=== PATIENT | male | born 1985 | race African-American/Black ===

== ENCOUNTER 2016-03-14 15:08 | Emergency (ER) | payer BC, OTHER ==
[2016-03-14 15:29] VITALS: BP 151/92; PULSE 83; TEMP 98; BMI 30.4
--- NOTE | 2016-03-14 16:42 | PDOC ---
History of Present Illness - General Chief Complaint: Psychiatric Stated Complaint: ANXIETY Time Seen by Provider: 03/14/16 16:08 History Source: Patient Exam Limitations: No Limitations - History of Present Illness Initial Comments: 03/14/16 21:48 31 yr male states he had "panic attack" yesterday at work and was sent home, pt states he is unable to return to work until seeing a doctor. Pt has no history of panic attacks, states he has been anxious at times and yesterday events causing argument caused him to have a panic attack. Pt denies illicit drug use, no alcohol or smoking. Pt has no medical history. Pt currently denies suicidal or homicidal thoughts. Associated Symptoms: reports: denies symptoms Past History - Past Medical History Allergies/Adverse Reactions: Allergies Allergy/AdvReac Type Severity Reaction Status Date / Time No Known Allergies Allergy Verified 03/14/16 15:29 Home Medications: Ambulatory Orders NK [No Known Home Medication] 04/04/15 Psychiatric Problems: No Suicide Attempt (Hx): No Other medical history: DENIES - Surgical History Cardiac Surgery: Yes (as a child unknown ) - Family Disease History Comment:: 03/14/16 21:50 unknown - Immunization History Immunization Up to Date: Yes - Psycho/Social/Smoking Cessation Hx Anxiety: No Suicidal Ideation: No Smoking History: Never smoked Have you smoked in the past 12 months: No Information on smoking cessation initiated: No Hx Alcohol Use: No Drug/Substance Use Hx: No Substance Use Type: None Review of Systems - Review of Systems Able to Perform ROS?: Yes Is the patient limited Tajik proficient: No Constitutional: No: Symptoms Reported HEENTM: No: Symptoms Reported Respiratory: No: Symptoms reported Cardiac (ROS): No: Symptoms Reported ABD/GI: No: Symptoms Reported : No: Symptoms Reported Musculoskeletal: No: Symptoms Reported Integumentary: No: Symptoms Reported Neurological: No: Symptoms reported Psychiatric: No: Anxiety, Depression *Physical Exam - Vital Signs Last Vital Signs Temp Pulse Resp BP Pulse Ox 98 F 83 18 151/92 98 03/14/16 15:26 03/14/16 15:26 03/14/16 15:26 03/14/16 15:26 03/14/16 15:26 - Physical Exam General Appearance: Yes: Nourished, Appropriately Dressed HEENT: positive: EOMI, GHAZAL, TMs Normal, Pharynx Normal Neck: positive: Supple. negative: Tender Respiratory/Chest: positive: Lungs Clear, Normal Breath Sounds Cardiovascular: positive: Regular Rhythm, Regular Rate Gastrointestinal/Abdominal: positive: Normal Bowel Sounds, Soft Musculoskeletal: positive: Normal Inspection Extremity: positive: Normal Capillary Refill, Normal Inspection, Normal Range of Motion Integumentary: positive: Normal Color, Dry, Warm Neurologic: positive: Fully Oriented, Alert, Normal Mood/Affect, Normal Response , Motor Strength /5 Medical Decision Making - Medical Decision Making 03/14/16 21:50 cc: needs note to return to work had "panic attack yesterday" pt denies anxiety at present denies SI or HI no history of depression or psychiatric illness pt is calm, cooperative no acute distress, Aox3 pt to return to work tomorrow follow with PMD or with the referred provider for Psychiatric services if any symptoms continue pt agrees with plan and agrees to follow with PMD if needed all questions asked and answered *DC/Admit/Observation/Transfer Diagnosis at time of Disposition: Anxiety - Discharge Dispostion Disposition: HOME Condition at time of disposition: Good - Referrals Referrals: Kevin Alvarado NP [Nurse Practitioner] - - Patient Instructions Additional Instructions: follow with your medical doctor for follow up if you have any thoughts of depression, sadness, hurting yourself return to ER right away return to work tomorrow
== END 2016-03-14 16:50 | disposition home or self-care (01) ==
LOC: JERFT 15:08
DX: F41.8 Other specified anxiety disorders (principal); F41.0 Panic disorder [episodic paroxysmal anxiety]
CPT/HCPCS: 99281-25

== ENCOUNTER 2017-06-24 13:01 | Emergency (ER) | payer OTHER ==
[2017-06-24 13:09] VITALS: BP 149/82; PULSE 92; TEMP 97.3; BMI 31.1
--- NOTE | 2017-06-24 13:22 | PDOC ---
History of Present Illness - General Chief Complaint: Toothache Stated Complaint: TOOTHACHE Time Seen by Provider: 06/24/17 13:17 History Source: Patient Exam Limitations: No Limitations - History of Present Illness Initial Comments: 06/24/17 14:17 c/o worsening toothache to left lower mouth, no [id number]/ no swelling to face/ has appt with DEnitist in 1 week Timing/Duration: unsure Associated Symptoms: reports: headaches, malaise. denies: fever/chills Past History - Travel Traveled outside of the country in the last 30 days: No Close contact w/someone who was outside of country & ill: No - Past Medical History Allergies/Adverse Reactions: Allergies Allergy/AdvReac Type Severity Reaction Status Date / Time No Known Allergies Allergy Verified 03/14/16 15:29 Home Medications: Ambulatory Orders Clindamycin HCl 300 mg PO TID #21 capsule 06/24/17 Naproxen [Naprosyn -] 500 mg PO TID #30 tablet 06/24/17 Oxycodone HCl/Acetaminophen [Percocet 5-325 mg Tablet -] 1 - 2 tab PO Q4H PRN # 7 tablet MDD 4 06/24/17 COPD: No Psychiatric Problems: No - Surgical History Cardiac Surgery: Yes (heart surgery PDA) - Immunization History Immunization Up to Date: Yes - Suicide/Smoking/Psychosocial Hx Smoking History: Never smoked Have you smoked in the past 12 months: No Hx Alcohol Use: No Drug/Substance Use Hx: No Substance Use Type: None Review of Systems - Review of Systems Able to Perform ROS?: Yes Is the patient limited French proficient: Yes Constitutional: Yes: Symptoms Reported, See HPI, Malaise. No: Fever HEENTM: Yes: Symptoms Reported, See HPI, Mouth Pain, Dental Problems, Mouth Swelling Respiratory: Yes: See HPI Integumentary: Yes: Symptoms Reported, See HPI All Other Systems: Reviewed and Negative *Physical Exam - Vital Signs Last Vital Signs Temp Pulse Resp BP Pulse Ox 97.3 F L 92 H 18 149/82 99 06/24/17 13:07 06/24/17 13:07 06/24/17 13:07 06/24/17 13:07 06/24/17 13:07 - Physical Exam General Appearance: Yes: Nourished, Appropriately Dressed, Apparent Distress, Mild Distress, Moderate Distress HEENT: positive: GHAZAL, TMs Normal, Pharynx Normal, Other (fractured teeth to left lower molar/ incisor with no noted swelling or abscess to gingival surface . ) Neck: positive: Tender, Supple. negative: Lymphadenopathy (R), Lymphadenopathy (L) Respiratory/Chest: positive: Lungs Clear, Normal Breath Sounds Gastrointestinal/Abdominal: positive: Soft Extremity: positive: Normal Capillary Refill, Normal Inspection Integumentary: positive: Normal Color, Dry, Warm, Pale Neurologic: positive: chief meteorologist II-XII NML intact, Fully Oriented, Alert, Normal Mood/ Affect, Normal Response, Motor Strength 06/28 Medical Decision Making - Medical Decision Making 06/24/17 14:07 toothache pain, related to multiple fractured teeth *DC/Admit/Observation/Transfer Diagnosis at time of Disposition: Tooth ache - Discharge Dispostion Disposition: HOME Condition at time of disposition: Stable Admit: No - Prescriptions Prescriptions: Clindamycin HCl 300 mg PO TID #21 capsule Oxycodone HCl/Acetaminophen [Percocet 5-325 mg Tablet -] 1 - 2 tab PO Q4H PRN # 7 tablet MDD 4 PRN Reason: Pain - Referrals - Patient Instructions Printed Discharge Instructions: DI for Dental Pain Additional Instructions: Rest, drink lots of fluids: Teas, water, soups Saltwater gargles/ keep mouth clean and rinse after each meal May use wet teabag for pain relief to area Avoid hard chewing foods, stick to ice cream, Jell-O, yogurt etc. Tylenol or Motrin for fever and pain Complete all medication as prescribed Seek dental appointment as soon as possible for evaluation of dental injury/pain Followup with private physician in one to 2 days as needed Return to emergency department for worsened symptoms, fevers, swelling to face or worsened pain - Post Discharge Activity Forms/Work/School Notes: Back to Work
[2017-06-24] MEDS ORDERED: KETOROLAC TROMETHAMINE 60 MG/2 ML VIAL IM ONE (14:00)
[2017-06-24] MEDS ORDERED: KETOROLAC TROMETHAMINE 60 MG/2 ML VIAL ONE (14:03)
== END 2017-06-24 14:15 | disposition home or self-care (01) ==
LOC: JERFT 13:01
PROC: 3E0233Z Introduction of Anti-inflammatory into Muscle, Percutaneous Approach (ICD-10-PCS; principal; 2017-06-24)
DX: K08.89 Other specified disorders of teeth and supporting structures (principal)
CPT/HCPCS: 99281-25

== ENCOUNTER 2017-11-10 20:23 | Inpatient (IN) | payer OTHER ==
--- NOTE | 2017-11-10 20:40 | PDOC ---
Rapid Medical Evaluation Chief Complaint: Cold Symptoms Time Seen by Provider: 11/10/17 20:37 Medical Evaluation: Allergies Allergy/AdvReac Type Severity Reaction Status Date / Time No Known Allergies Allergy Verified 03/14/16 15:29 11/10/17 20:38 This patient had a brief in-person evaluation by me The patient has a chief complaint of: flu-like symptoms since Friday. Patient reports bodyaches, fever, and headache. Recent return from [facility] on Friday. Using theraflu with no relief of symptoms The pertinent physical findings are: nasal congestion even and unlabored breathing heart [id number] The following orders have been placed: flu swab, antipyretic This patient will proceed to the ED for further evaluation. 11/10/17 20:41
[2017-11-10 20:41] VITALS: BMI 31.7
[2017-11-10] MEDS ORDERED: ACETAMINOPHEN 500 MG TABLET (FP) PO ONE (20:43)
[2017-11-10] MEDS ORDERED: ACETAMINOPHEN 500 MG TABLET (FP) ONE (20:50)
--- NOTE | 2017-11-10 21:27 | PDOC ---
History of Present Illness - General Chief Complaint: Cold Symptoms Stated Complaint: COLD SYMPTOMS Time Seen by Provider: 11/10/17 20:37 History Source: Patient Exam Limitations: No Limitations - History of Present Illness Initial Comments: 11/11/17 01:51 Mr. Solano is a 32 yo M with a hx of PDA repair at ahe 13 yo who presents to the emergency department with generalized aches and fever. He states it began on Friday, but he did not have his temperature checked, just "felt hot". Concurrently, he had an onset of generalized body aches that persisted. He endorses having a non productive cough along with headaches, chills, and nausea. Denies recent visual changes, chest pain, SOB, abdominal pain, dysuria, hematuria, recent sick contacts, leg pain/swelling, diarrhea, and melena. Pmhx: Refer to above Meds: None Allergies: NKDA Social: Denies tobacco, alcohol, and substance abuse Past History - Past Medical History Allergies/Adverse Reactions: Allergies Allergy/AdvReac Type Severity Reaction Status Date / Time nut - unspecified Allergy Severe Swelling Verified 11/10/17 20:42 fruit Allergy Severe Swelling Uncoded 11/10/17 20:42 Home Medications: Ambulatory Orders Clindamycin HCl 300 mg PO TID #21 capsule 06/24/17 Naproxen [Naprosyn -] 500 mg PO TID #30 tablet 06/24/17 Oxycodone HCl/Acetaminophen [Percocet 5-325 mg Tablet -] 1 - 2 tab PO Q4H PRN # 7 tablet MDD 4 06/24/17 COPD: No Psychiatric Problems: No - Surgical History Cardiac Surgery: Yes (heart surgery PDA) - Immunization History Immunization Up to Date: Yes - Suicide/Smoking/Psychosocial Hx Smoking History: Never smoked Have you smoked in the past 12 months: No Information on smoking cessation initiated: No Hx Alcohol Use: Yes (social) Drug/Substance Use Hx: No Substance Use Type: None Review of Systems - Review of Systems Able to Perform ROS?: Yes Constitutional: Yes: Chills, Diaphoresis, Fever HEENTM: No: Eye Pain, Recent change in vision, Nose Pain, Throat Pain, Mouth Pain Respiratory: Yes: Cough. No: Shortness of Breath, Hemoptysis Cardiac (ROS): No: Chest Pain, Edema, Palpitations, Syncope, Chest Tightness ABD/GI: Yes: Nausea, Poor Fluid Intake. No: Constipated, Diarrhea, Poor Appetite, Rectal Bleeding, Vomiting, Abdominal cramping, Tarry Stools : No: Burning, Dysuria, Flank Pain, Hematuria Musculoskeletal: No: Back Pain Integumentary: No: Rash Neurological: Yes: Headache. No: Numbness, Tingling, Tremors, Weakness, Dizziness Psychiatric: No: Stressors Endocrine: No: Unexplained Weight Gain Hematologic/Lymphatic: No: Anemia *Physical Exam - Vital Signs Last Vital Signs Temp Pulse Resp BP Pulse Ox 103.0 F H 121 H 20 140/89 93 L 11/10/17 20:37 11/10/17 20:37 11/10/17 20:37 11/10/17 20:37 11/10/17 20:37 - Physical Exam General Appearance: Yes: Nourished, Appropriately Dressed HEENT: positive: EOMI, GHAZAL Neck: positive: Trachea midline. negative: Lymphadenopathy (R), Lymphadenopathy (L) Respiratory/Chest: positive: Lungs Clear, Normal Breath Sounds. negative: Chest Tender, Respiratory Distress, Accessory Muscle Use Cardiovascular: positive: Regular Rhythm, S1, S2, Tachycardia. negative: Systolic Murmur Vascular Pulses: Dorsalis-Pedis (R): 3+, Doralis-Pedis (L): 3+ Gastrointestinal/Abdominal: positive: Normal Bowel Sounds. negative: Tender Lymphatic: negative: Adenopathy Musculoskeletal: positive: Normal Inspection. negative: CVA Tenderness Extremity: positive: Normal Capillary Refill, Normal Inspection, Normal Range of Motion. negative: Tender Integumentary: positive: Normal Color, Dry, Warm Neurologic: positive: scleroscope tester II-XII NML intact, Fully Oriented, Alert, Normal Mood/ Affect, Normal Response, Motor Strength 06/28 ED Treatment Course - LABORATORY CBC & Chemistry Diagram: 11/10/17 23:20 11/10/17 23:20 - Medications Given in the ED: ED Medications Discontinued Medications Generic Name Dose Route Start Last Admin Trade Name Freq PRN Reason Stop Dose Admin Acetaminophen 1,000 mg 11/10/17 20:43 11/10/17 20:53 Tylenol - PO 11/10/17 20:44 1,000 mg ONCE ONE Administration Medical Decision Making - Medical Decision Making 11/11/17 01:58 32 yo M with no pertinent past medical hx presenting with fever and generalized body aches ddx: influenza, URI, CAP, sepsis Initial vitals: Initial Vital Signs Temp Pulse Resp BP Pulse Ox 103.0 F H 121 H 20 140/89 93 L 11/10/17 20:37 11/10/17 20:37 11/10/17 20:37 11/10/17 20:37 11/10/17 20:37 Work up: Laboratory Tests 11/10/17 11/10/17 11/11/17 23:20 23:20 02:30 WBC 19.0 H RBC 4.62 Hgb 13.0 Hct 38.7 MCV 83.8 MCH 28.1 MCHC 33.6 RDW 14.2 Plt Count 276 MPV 7.9 Absolute Neuts (auto) 14.6 H Neutrophils % 76.8 Lymphocytes % 14.6 Monocytes % 8.0 Eosinophils % 0.3 Basophils % 0.3 Nucleated RBC % 0 Sodium 137 Potassium 3.9 Chloride 103 Carbon Dioxide 26 Anion Gap 8 BUN 12 Creatinine 1.1 Creat Clearance w eGFR > 60 Random Glucose 106 Calcium 8.8 Total Bilirubin 1.0 AST 27 ALT 37 Alkaline Phosphatase 110 Total Protein 7.9 Albumin 3.8 Urine Color Lesa Urine Appearance Slcloudy Urine pH 5.0 Ur Specific [place] 1.030 Urine Protein 2+ H Urine Glucose (UA) Negative Urine Ketones 1+ H Urine Blood 2+ H Urine Nitrite Negative Urine Bilirubin Negative Urine Urobilinogen 2.0 Ur Leukocyte Esterase Negative Urine WBC (Auto) 3 Urine RBC (Auto) 7 Urine Mucus Many CXR showed elevated left hemidiaphragm and possible infiltrate in the right lower lobe. A CT chest was ordered which showed "ground glass and nodular patchy densities right upper, right middle, right lower, and left upper lobes". The patient was adamant on re-examination that he was not taking medication or had previous medical history except for the PDA. The findings were relayed to the patient and I expressed concern that he may be immunocompromised and asked if we can run a HIV test. He declined stating "i just don't want to know". it was subsequently revealed by the hospital admitting team that he was in fact HIV positive on anti-retroviral therapy. Will be admitted for further management and care. Started on rocephin and azithromycin. Dispo: Admit *DC/Admit/Observation/Transfer Diagnosis at time of Disposition: Pneumonia Qualifiers: Pneumonia type: due to unspecified organism Laterality: unspecified laterality Lung location: unspecified part of lung Qualified Code(s): J18.9 - Pneumonia, unspecified organism - Discharge Dispostion Decision to Admit order: Yes - Referrals - Patient Instructions - Post Discharge Activity
[2017-11-10] MEDS ORDERED: SODIUM CHLORIDE 1,000 ML IV STA (21:39)
[2017-11-10 23:37] LABS: BASO % 0.3 % (0-2.0); EOS % 0.3 % (0-4.5); HEMATOCRIT 38.7 % (35.4-49); LYMPH % 14.6 % (8-40); MCH 28.1 pg (25.7-33.7); MCHC 33.6 g/dl (32.0-35.9); MEAN CELL VOLUME 83.8 fl (80-96); MEAN PLT VOLUME 7.9 fl (7.5-11.1); NEUT % 76.8 % (42.8-82.8); PLATELET COUNT 276 K/MM3 (134-434); RBC 4.62 M/mm3 (4.00-5.60); RDW 14.2 % (11.9-15.9)
--- NOTE | 2017-11-10 23:39 | PDOC ---
Attending Attestation - HPI HPI: 11/10/17 23:51 The patient is a 32 year old male, with no significant past medical history, who presents to the emergency department with, 3 days of a headache, fever, chills, nausea, vomiting, and diffuse body aches. - Physicial Exam PE: 11/10/17 23:51 +GENERAL: Diaphoretic. No apparent distress. HEENT: Normocephalic, atraumatic. PERRL, EOM intact. CARDIOVASCULAR: Normal S1, S2. Regular rate and rhythm. PULMONARY: Clear to auscultation bilaterally. ABDOMEN: Soft, non-distended, non-tender. EXTREMITIES: Normal ROM in all four extremities. No gross deformities. SKIN: Warm, dry. No rash NEUROLOGICAL: No focal neurological deficits. <Amelia Vincent - Last Filed: 11/10/17 23:51> - Resident Resident Name: Soto Garcia - ED Attending Attestation I have performed the following: I have examined & evaluated the patient, The case was reviewed & discussed with the resident, I agree w/resident's findings & plan, Exceptions are as noted - Medical Decision Making 11/11/17 00:50 32 yo male who denies any prior PMH p/w 3 days of fever,nasal congestion,nausea, head ache -he appears in good spirits and is nontoxic appearing despite his high fever -he has no nuchal rigidity cbc shows leukocytosis chemistries unremarkable 11/11/17 02:36 ct chest ++ ground glass infiltrates -pt was again asked about his PMH and he did finally say he was HIV positive pr admitted <Chel Mckenzie - Last Filed: 11/11/17 02:37> Attestations - Attestations 11/10/17 23:52 Documentation prepared by Amelia Vincent, acting as director of graduate medical education for Chel Mckenzie MD. <Amelia Vincent - Last Filed: 11/10/17 23:51>
[2017-11-11] LABS: ALBUMIN 3.8 g/dl (3.4-5.0); ANION GAP 8 MMOL/L (8-16); BLOOD UREA NITROGEN 12 mg/dL (7-18); CALCIUM 8.8 mg/dL (8.5-10.1); CHLORIDE 103 mmol/L (98-107); CO2 26 mmol/L (21-32); CREATININE 1.1 mg/dL (0.55-1.3); GLUCOSE,RANDOM 106 mg/dL (74-106); POTASSIUM 3.9 mmol/L (3.5-5.1); SGOT/AST 27 U/L (15-37); SGPT/ALT 37 U/L (13-61); SODIUM 137 mmol/L (136-145); TOT PROT 7.9 g/dl (6.4-8.2)
[2017-11-11 00:01] LABS: ALK PHOS 110 U/L (45-117)
[2017-11-11] MEDS ORDERED: AZITHROMYCIN IVPB 500 MG in DEXTROSE 5%-WATER - 250 ML IVPB ONE (01:27)
[2017-11-11] MEDS ORDERED: CEFTRIAXONE 1,000 MG in DEXTROSE 5%-WATER - 50 ML IVPB ONE (02:12)
--- NOTE | 2017-11-11 02:25 | PN ---
Teaching Attending Note Name of Resident: Tina Roa ATTENDING PHYSICIAN STATEMENT I saw and evaluated the patient. I reviewed the resident's note and discussed the case with the resident. I agree with the resident's findings and plan as documented. SUBJECTIVE: Patient is a 32 year old man with a history of AIDS (on HAART) and PDA repair at age 13 years who presents to the ER with generalized aches and fever. He states it began on Friday, but he did not have his temperature checked, just "felt hot". Concurrently, he had an onset of generalized body aches that persisted. He has sex with men and says he has had up to 30 partners. Recent return from [facility] on Friday. Using theraflu with no relief of symptoms. He professes compliance with HAART and says his viral load was undetectable in June 2017. He has a non productive cough along with headaches, chills, and nausea. Denies photophobia, recent unintended weight loss, night sweats, anorexia, chest pain, SOB, abdominal pain, dysuria, hematuria, recent sick contacts, leg pain/swelling or diarrhea. OBJECTIVE: Alert Vital Signs Period Temp Pulse Resp BP Sys/Jameson Pulse Ox Last 24 Hr 103.0 F 121 20 140/89 93 HEENT: No Jaundice, eye redness or discharge, PERRLA, EOMI. Normocephalic, atraumatic. External ears are normal and hearing is grossly intact. No nasal discharge. Neck: Supple, nontender. No palpable adenopathy or thyromegaly. No JVD Chest: Good effort. Clear to auscultation and percussion. Heart: Regular. No S3, rub or murmur Abdomen: Not distended, soft, nontender and no HSM. No rebound or guarding. Normoactive bowel sounds. Ext: Peripheral pulses intact. No leg edema. Skin: Warm and dry. No petechiae, rash or ecchymosis. Neuro: Alert. Oriented x3. CN 2-12 grossly intact. Sensation grossly intact in all four extremities and DTR are symmetric. Current Medications Generic Name Dose Route Start Last Admin Trade Name Freq PRN Reason Stop Dose Admin Ceftriaxone Sodium 1,000 mg/ 50 mls @ 100 mls/hr 11/11/17 02:12 Dextrose IVPB 11/11/17 02:41 ONCE ONE Home Medications Medication Instructions Recorded Clindamycin HCl 300 mg PO TID #21 capsule 06/24/17 Naproxen [Naprosyn -] 500 mg PO TID #30 tablet 06/24/17 Oxycodone HCl/Acetaminophen 1 - 2 tab PO Q4H PRN #7 tablet MDD 06/24/17 [Percocet 5-325 mg Tablet -] 4 Abnormal Lab Results 11/10/17 23:20 WBC 19.0 H Absolute Neuts (auto) 14.6 H ASSESSMENT AND PLAN: 1. Pneumonia - CXR shows bilateral reticulonodular infiltrates with elevation of left hemidiaphragm. Chest CT shows ground glass and nodular/patchy densities. In view of his AIDS diagnosis, concerns include pneumocystis jirovecii infection, pulmonary histoplasmosis or just atypical pneumonia. Miliary TB is less likely. Will get blood histoplasma antibody and antigen, urine histoplasma antigen, urine legionella antigen, LDH, ABG after mild exertion and blood cultures. Treat with IV Azithromycin, IV bactrim and PO Itraconazole as well as prednisone 40 mg po qd. Encourage liberal oral fluids and give IV 0.45% NS at 100 ml/hour. Consult ID and pulmonary. Address left hiatal hernia when he is stable. 2. Obesity - Will provide patient all the necessary assistance, counseling and positive reinforcement to facilitate weight loss. Consult plastic press operator. 3. DVT prophylaxis - Lovenox 40 mg SQ q 24 hours. 4. Advance directives - Full code
[2017-11-11 02:40] LABS: URINE APPEARANCE SLCLOUDY; URINE BILIRUBIN NEGATIVE (<2.0 mg/dL); URINE COLOR AMBER; URINE GLUCOSE (UA) NEGATIVE (NEGATIVE); URINE KETONE 1+ (NEGATIVE); URINE LEUK ESTERASE NEGATIVE (NEGATIVE); URINE NITRITE NEGATIVE (NEGATIVE)
[2017-11-11 02:54] LABS: URINE PROTEIN 2+ (NEGATIVE)
[2017-11-11 02:55] LABS: URINE MUCUS MANY
[2017-11-11] MEDS ORDERED: AZITHROMYCIN IVPB 250 MG in DEXTROSE 5%-WATER - 250 ML IVPB ONE ×2 (03:31→03:32)
[2017-11-11 03:43] LABS: ARTERIAL BLOOD GAS BASE EXCESS 1.8 meq/l (-2-2); ARTERIAL BLOOD GAS PCO2 32.3 mmHg (35-45); ARTERIAL BLOOD GAS PO2 63.1 mmHg (80-100); ARTERIAL BLOOD GAS pH 7.49 (7.35-7.45)
[2017-11-11 03:44] LABS: ALLENS TEST POSITIVE
--- NOTE | 2017-11-11 03:59 | HP ---
CHIEF COMPLAINT: generalized weakness/fevers/cough PCP: N/A HISTORY OF PRESENT ILLNESS: 32 y/o male with PMH of HIV ( diagnosed two years ago, on HAART therapy, last viral load july 11 was undetectable) and a PDA repair at age 13 presents to the ED with complaints of generalized fatigue, subjective fevers,nausea/cough since Friday. Patient returned from the [facility] on Nov 03 and has not felt well since. He denies feeling any symptoms while [place] in the [place] nor was he aware of anyone that was sick around him, however, since he got home he has not felt well. He tried taking Theraflu and Tylenol with some relief but still not enough; so he came to the ED. He denies any vomiting, but does endorse some nausea and anorexia. In addition, he has had a non-productive cough , he is not dyspneic, however, states that it feels a little "weird" when he takes a deep breath in but he is not in any pain. He denies any CP. ER course was notable for: (1) T 103 HR 121, WBC 19 (2) Chest CT showed ground glass and nodular patchy densities in the RUL,RML, RLL and SILVINO (3) given 1L bolus, ceftriaxone 1gram, azithromycin 250mg, Recent Travel: [facility] for 5 days- returned nov 03 PAST MEDICAL HISTORY: See above PAST SURGICAL HISTORY: PDA repair at age 13 Social History: Smoking: denies Alcohol: denies Drugs: denies Family History: Allergies nut - unspecified Allergy (Severe, Verified 11/10/17 20:42) Swelling fruit Allergy (Severe, Uncoded 11/10/17 20:42) Swelling HOME MEDICATIONS: Home Medications Medication Instructions Recorded Clindamycin HCl 300 mg PO TID #21 capsule 06/24/17 Naproxen [Naprosyn -] 500 mg PO TID #30 tablet 06/24/17 Oxycodone HCl/Acetaminophen 1 - 2 tab PO Q4H PRN #7 tablet MDD 06/24/17 [Percocet 5-325 mg Tablet -] 4 REVIEW OF SYSTEMS CONSTITUTIONAL: Present:generalized weakness, malaise, loss of appetite, fever, Absent: chills, diaphoresis, weight change HEENT: Absent: rhinorrhea, nasal congestion, throat pain, throat swelling, difficulty swallowing, mouth swelling, ear pain, eye pain, visual changes CARDIOVASCULAR: Absent: chest pain, syncope, palpitations, irregular heart rate, lightheadedness , peripheral edema RESPIRATORY: Present: cough, shortness of breath Absent: dyspnea with exertion, orthopnea, wheezing, stridor, hemoptysis GASTROINTESTINAL: Absent: abdominal pain, abdominal distension, nausea, vomiting, diarrhea, constipation, melena, hematochezia GENITOURINARY: Absent: dysuria, frequency, urgency, hesitancy, hematuria, flank pain, genital pain MUSCULOSKELETAL: Absent: myalgia, arthralgia, joint swelling, back pain, neck pain SKIN: Absent: rash, itching, pallor HEMATOLOGIC/IMMUNOLOGIC: Absent: easy bleeding, easy bruising, lymphadenopathy, frequent infections ENDOCRINE: Absent: unexplained weight gain, unexplained weight loss, heat intolerance, cold intolerance NEUROLOGIC: Absent: headache, focal weakness or paresthesias, dizziness, unsteady gait, seizure, mental status changes, bladder or bowel incontinence PSYCHIATRIC: Absent: anxiety, depression, suicidal or homicidal ideation, hallucinations. PHYSICAL EXAMINATION Vital Signs - 24 hr 11/10/17 20:37 Temperature 103.0 F H Pulse Rate 121 H Respiratory 20 Rate Blood Pressure 140/89 O2 Sat by Pulse 93 L Oximetry (%) GENERAL: Awake, alert, and fully oriented, in no acute distress. NECK: no JVD seen LUNGS: lungs CTA B/L; no rales, rhonchi, wheezing. HEART: Regular rate and rhythm, normal S1 and S2 without murmur, rub or gallop. ABDOMEN: Soft, nontender, not distended, normoactive bowel sounds, no guarding, no rebound, no masses. No hepatomegaly or splenomegaly. MUSCULOSKELETAL: Normal range of motion at all joints. No bony deformities or tenderness. No CVA tenderness. EXTREMITIES: warm; well-perfussed, no clubbing/cyanosis/or edema NEUROLOGICAL: Cranial nerves II-XII intact. Normal speech. Normal gait. PSYCHIATRIC: Cooperative. Good eye contact. Appropriate mood and affect. SKIN: Warm, dry, normal turgor, no rashes or lesions noted, normal capillary refill. Laboratory Results - last 24 hr 11/10/17 11/10/17 11/11/17 23:20 23:20 02:30 WBC 19.0 H RBC 4.62 Hgb 13.0 Hct 38.7 MCV 83.8 MCH 28.1 MCHC 33.6 RDW 14.2 Plt Count 276 MPV 7.9 Absolute Neuts (auto) 14.6 H Neutrophils % 76.8 Lymphocytes % 14.6 Monocytes % 8.0 Eosinophils % 0.3 Basophils % 0.3 Nucleated RBC % 0 Sodium 137 Potassium 3.9 Chloride 103 Carbon Dioxide 26 Anion Gap 8 BUN 12 Creatinine 1.1 Creat Clearance w eGFR > 60 Random Glucose 106 Calcium 8.8 Total Bilirubin 1.0 AST 27 ALT 37 Alkaline Phosphatase 110 Total Protein 7.9 Albumin 3.8 Urine Color Lesa Urine Appearance Slcloudy Urine pH 5.0 Ur Specific [place] 1.030 Urine Protein 2+ H Urine Glucose (UA) Negative Urine Ketones 1+ H Urine Blood 2+ H Urine Nitrite Negative Urine Bilirubin Negative Urine Urobilinogen 2.0 Ur Leukocyte Esterase Negative Urine WBC (Auto) 3 Urine RBC (Auto) 7 Urine Mucus Many ASSESSMENT/PLAN: 32 y/o male with PMH of HIV, PDA repair presents to the ED with a three day history of subjective fevers,generalized weakness, nausea and non-productive cough found to febrile to 103, with a leukocytosis of [address] which shows B/L ground glass nodular patchy densities. #Pneumonia possibly 2/2 to PCP (given HIV status) vs. Histoplama (given travel history) vs. CAP -started patient on IV azithromycin, IV bactrim and PO itraconazole to cover for all -blood and urine cx pending -histoplama antigen (urine and serum) and ab pending -urine antigen for PNA detection pending -ID consult ordered -Pulm consult ordered -LDH level pending -monitor 02 saturations #HIV patients last viral load was july 11 and was undetectable -viral load and CD4 count ordered -patient takes truvada,prezista, and norvir -patients ID doctor is Dr. Queenie Rangel ([phone]) DVT Prophylaxis: lovenox 40 SQ F/E/N: 1/2 NS @100mls/hr replete electrolytes when needed regular diet dispo: med-surg - Problem List - Problem (1) Pneumonia Code(s): J18.9 - PNEUMONIA, UNSPECIFIED ORGANISM (2) HIV (human immunodeficiency virus infection) Code(s): B20 - HUMAN IMMUNODEFICIENCY VIRUS [HIV] DISEASE Visit type - Emergency Visit Emergency Visit: Yes ED Registration Date: 11/11/17 Care time: The patient presented to the Emergency Department on the above date and was hospitalized for further evaluation of their emergent condition. - New Patient This patient is new to me today: Yes Date on this admission: 11/11/17 - Critical Care Critical Care patient: No Hospitalist Screening - Colonoscopy Questionnaire Colonoscopy Questionnaire: Colonoscopy Questionnaire - Patient: 50 - 75 years old and never had a screening colonoscopy: Unknown History of colon or rectal polyps, or CA: Unknown History of IBD, Crohn's disease or UC: Unknown History of abdominal radiation therapy as a child: Unknown - Relative: 1 with colon or rectal CA, or polyps at age 60 or younger: Unknown Colon or rectal CA diagnosed at age 45 or younger: Unknown Multiple relatives with colon or rectal CA: Unknown - Outcome: Screening Result: Negative Screen
[2017-11-11] MEDS: SODIUM CHLORIDE 0.45% 1,000 ML IV SCH ×2 (04:19→23:22)
[2017-11-11] MEDS ORDERED: CEFTRIAXONE 1 GM/50 ML BAG ONE (05:07)
[2017-11-11] MEDS ORDERED: AZITHROMYCIN IVPB 250 ML IVPB ONE (05:07)
[2017-11-11] MEDS: SULFAMETHOXAZOLE 80 MG/TRIMETHOPRIM 16 MG/ML VIAL IVPB SCH ×2 (05:11→11:43)
[2017-11-11] MEDS: ITRACONAZOLE 100 MG CAPSULE PO SCH ×2 (05:12→13:55)
[2017-11-11 07:08] LABS: BASO % 0.3 % (0-2.0); EOS % 0.6 % (0-4.5); HEMATOCRIT 36.7 % (35.4-49); HEMOGLOBIN 12.2 GM/dL (11.7-16.9); LYMPH % 10.9 % (8-40); MCH 27.8 pg (25.7-33.7); MCHC 33.3 g/dl (32.0-35.9); MEAN CELL VOLUME 83.4 fl (80-96); MEAN PLT VOLUME 8.2 fl (7.5-11.1); MONO % 6.7 % (3.8-10.2); NEUT % 81.5 % (42.8-82.8); PLATELET COUNT 255 K/MM3 (134-434); WHITE BLOOD COUNT 15.4 K/mm3 (4.0-10.0)
[2017-11-11 07:31] LABS: ALBUMIN 3.5 g/dl (3.4-5.0); ANION GAP 12 MMOL/L (8-16); BILIRUBIN,TOTAL 0.8 mg/dL (0.2-1); BLOOD UREA NITROGEN 10 mg/dL (7-18); CALCIUM 8.8 mg/dL (8.5-10.1); CHLORIDE 102 mmol/L (98-107); CO2 23 mmol/L (21-32); CREATININE 0.9 mg/dL (0.55-1.3); GLUCOSE,RANDOM 159 mg/dL (74-106); MAGNESIUM 2.2 mg/dL (1.8-2.4); PHOSPHOROUS 2.3 mg/dL (2.5-4.9); POTASSIUM 3.9 mmol/L (3.5-5.1); SGOT/AST 27 U/L (15-37); SGPT/ALT 35 U/L (13-61); SODIUM 137 mmol/L (136-145); TOT PROT 7.4 g/dl (6.4-8.2)
[2017-11-11 07:32] LABS: ALK PHOS 115 U/L (45-117)
[2017-11-11] MEDS ORDERED: NAPH,MB-DB/K PH,MBDB POWDER PACKET PO ONE (07:51)
[2017-11-11] MEDS ORDERED: FLU VACCINE QUAD 60 MCG/0.5 ML (MDV 18-19) IM ONE (09:45)
[2017-11-11] MEDS ORDERED: predniSONE 20 MG TABLET (UD) PO SCH (10:00)
[2017-11-11] MEDS ORDERED: AZITHROMYCIN IVPB 250 MG in DEXTROSE 5%-WATER - 250 ML IVPB SCH (10:00)
[2017-11-11] MEDS ORDERED: PT OWN MED DRAWER 7, Y5N ONE ×3 (10:46→17:19)
[2017-11-11] MEDS: ENOXAPARIN NA (PORCINE) 40 MG/0.4 ML DISP.SYRIN SQ SCH (10:54)
[2017-11-11] MEDS ORDERED: ACETAMINOPHEN 325 MG TABLET (FP) PO ONE (12:03)
--- NOTE | 2017-11-11 12:13 | CON.PULM ---
Consult Consult Specialty:: PULM/CCM Referred by:: Hospitalist Reason for Consultation:: SOB / Abnormal CT chest - History of Present Illness Chief Complaint: SOB / RICHARDS History of Present Illness: 32 M, known HIV on HAART and PDA repair at age 13. Reports no previous known respiratory opportunistic infections. No previous CT chest but thinks normal CXR years ago. Recent travel history to the . Reports the passenger seated behind him coughed on his the entire trip. Sick contact apparently in the [facility] during his lay over. Reports generalized aches, fever, malaise, sinus congestion/headache, cough, and some ADKINS. Says he is fully compliant with HAART and his viral load was undetectable in June 2017. No hemoptysis. His cough is mildly productive and sputum is thin. - History Source History Provided By: Patient Limitations to Obtaining History: No Limitations - Past Medical History Pulmonary: No: Asthma, Bronchitis, Pneumonia, Previously Intubated, Pulmonary Embolus, Pulmonary Fibrosis, Sleep Apnea - Alcohol/Substance Use Hx Alcohol Use: Yes (social) - Smoking History Smoking history: Never smoked Have you smoked in the past 12 months: No Home Medications - Allergies Allergies/Adverse Reactions: Allergies Allergy/AdvReac Type Severity Reaction Status Date / Time nut - unspecified Allergy Severe Swelling Verified 11/10/17 20:42 fruit Allergy Severe Swelling Uncoded 11/10/17 20:42 - Home Medications Home Medications: Ambulatory Orders Clindamycin HCl 300 mg PO TID #21 capsule 06/24/17 Naproxen [Naprosyn -] 500 mg PO TID #30 tablet 06/24/17 Oxycodone HCl/Acetaminophen [Percocet 5-325 mg Tablet -] 1 - 2 tab PO Q4H PRN # 7 tablet MDD 4 06/24/17 Darunavir Ethanolate [Prezista] 800 mg PO DAILY 11/11/17 Emtricitabine/Tenofovir (Tdf) [Truvada 200 mg-300 mg Tablet] 200 mg PO DAILY Ritonavir 100 mg PO DAILY 11/11/17 Review of Systems - Review of Systems Constitutional: reports: Chills, Fever, Loss of Appetite, Malaise, Night Sweats , Weakness. denies: Unintentional Wgt. Loss Eyes: reports: No Symptoms HENT: reports: No Symptoms Neck: reports: No Symptoms Cardiovascular: reports: Shortness of Breath. denies: Chest Pain, Edema, Palpitations Respiratory: reports: Cough, SOB on Exertion. denies: Hemoptysis, Orthopnea, Snoring, Wheezing Gastrointestinal: reports: No Symptoms Genitourinary: reports: No Symptoms Breasts: reports: No Symptoms Reported Musculoskeletal: reports: No Symptoms Integumentary: reports: No Symptoms Neurological: reports: No Symptoms Endocrine: reports: No Symptoms Hematology/Lymphatic: reports: No Symptoms Psychiatric: reports: No Symptoms Physical Exam Vital Sings: Vital Signs Temperature 101.5 F H 11/11/17 10:02 Pulse Rate 96 H 11/11/17 10:02 Respiratory Rate 18 11/11/17 10:02 Blood Pressure 140/85 11/11/17 10:02 O2 Sat by Pulse Oximetry (%) 96 11/11/17 10:02 Constitutional: Yes: Well Nourished, No Distress, Calm, Obese Eyes: Yes: Conjunctiva Clear, EOM Intact HENT: Yes: Atraumatic, Normocephalic Neck: Yes: Supple, Trachea Midline Cardiovascular: Yes: Regular Rate and Rhythm Respiratory: Yes: CTA Bilaterally. No: Accessory Muscle Use, On Nasal O2, Rales , Rhonchi, SOB, Stridor, Tachypnea, Wheezes ...Inspection: Yes: WNL ...Clubbing: No Gastrointestinal: Yes: Normal Bowel Sounds, Soft Renal/: Yes: WNL Musculoskeletal: Yes: WNL Extremities: Yes: WNL Edema: No Peripheral Pulses WNL: Yes Integumentary: Yes: WNL Neurological: Yes: WNL, Alert, Oriented ...Motor Strength: WNL Psychiatric: Yes: WNL, Alert, Oriented Labs: CBC, BMP 11/11/17 06:45 11/11/17 06:45 ABG Results ABG pH 7.49 (7.35-7.45) H 11/11/17 03:30 ABG pCO2 at Pt Temp 32.3 mmHg (35-45) L 11/11/17 03:30 ABG pO2 at Pt Temp 63.1 mmHg (80-100) L 11/11/17 03:30 ABG HCO3 24.2 meq/L (22-26) 11/11/17 03:30 ABG O2 Sat (Measured) 93.0 % (90-98.9) 11/11/17 03:30 ABG O2 Content 17.2 % vol (15-22) 11/11/17 03:30 ABG Base Excess 1.8 meq/l (-2-2) 11/11/17 03:30 Imaging - Results Chest X-ray: Report Reviewed, Image Reviewed Cat Scan: Report Reviewed, Image Reviewed Problem List - Problems (1) HIV (human immunodeficiency virus infection) Code(s): B20 - HUMAN IMMUNODEFICIENCY VIRUS [HIV] DISEASE (2) Pneumonia Code(s): J18.9 - PNEUMONIA, UNSPECIFIED ORGANISM Qualifiers: Pneumonia type: due to unspecified organism Laterality: unspecified laterality Lung location: unspecified part of lung Qualified Code(s): J18.9 - Pneumonia, unspecified organism (3) Allergic rhinitis Code(s): J30.9 - ALLERGIC RHINITIS, UNSPECIFIED Assessment/Plan Sputum analysis has been ordered. If no definitive diagnosis is made and condition worsens, may need diagnostic bronchoscopy Noted ID consult has been called: will discuss further ABX coverage No clear indication for IV steroids so monitor off for now. Noted Prednisone, OK for now. Nasal saline / sprays Check urine antigen O2 as needed to maintain saturation. At present he is not hypoxic and appears comfortable Should verify his immune status with outside MD VTE prophylaxis Will follow Thank you. Dr Ocampo
--- NOTE | 2017-11-11 12:47 | PN ---
Physical Exam: SUBJECTIVE: Patient seen and examined this AM. He states that he is feeling better this morning and that his breathing feels more clear. States he has had a cough with mild nonbloody mucus production. Denies chills, myalgias, n/v. OBJECTIVE: Vital Signs Period Temp Pulse Resp BP Sys/Jameson Pulse Ox Last 24 Hr 100.0 F-103.0 F 77-121 17-20 131-140/85-89 93-96 GENERAL: A&O, no acute distress HEAD: Normocephalic, atraumatic. EYES: PERRL, no scleral icterus EARS, NOSE, THROAT: oropharynx clear without exudates. Moist mucous membranes. NECK: supple without lymphadenopathy LUNGS: CTA b/l, no crackles or wheezes HEART: Regular rate and rhythm, normal S1 and S2 without murmur ABDOMEN: Soft, obese, nontender to palpation, normoactive bowel sounds MUSCULOSKELETAL: No bony deformities or tenderness. EXTREMITIES: 2+ pulses, warm, well-perfused. No peripheral edema. NEUROLOGICAL: Cranial nerves II-XII grossly intact. Normal speech. PSYCHIATRIC: Cooperative. Good eye contact. Appropriate mood and affect. Laboratory Results - last 24 hr 11/10/17 11/10/17 11/11/17 23:20 23:20 02:30 WBC 19.0 H RBC 4.62 Hgb 13.0 Hct 38.7 MCV 83.8 MCH 28.1 MCHC 33.6 RDW 14.2 Plt Count 276 MPV 7.9 Absolute Neuts (auto) 14.6 H Neutrophils % 76.8 Lymphocytes % 14.6 Monocytes % 8.0 Eosinophils % 0.3 Basophils % 0.3 Nucleated RBC % 0 Puncture Site ABG pH ABG pCO2 at Pt Temp ABG pO2 at Pt Temp ABG HCO3 ABG O2 Sat (Measured) ABG O2 Content ABG Base Excess Chandana Test O2 Delivery Device Oxygen Flow Rate Sodium 137 Potassium 3.9 Chloride 103 Carbon Dioxide 26 Anion Gap 8 BUN 12 Creatinine 1.1 Creat Clearance w eGFR > 60 Random Glucose 106 Lactic Acid Calcium 8.8 Phosphorus Magnesium Total Bilirubin 1.0 AST 27 ALT 37 Alkaline Phosphatase 110 LD Total Total Protein 7.9 Albumin 3.8 Urine Color Lesa Urine Appearance Slcloudy Urine pH 5.0 Ur Specific [place] 1.030 Urine Protein 2+ H Urine Glucose (UA) Negative Urine Ketones 1+ H Urine Blood 2+ H Urine Nitrite Negative Urine Bilirubin Negative Urine Urobilinogen 2.0 Ur Leukocyte Esterase Negative Urine WBC (Auto) 3 Urine RBC (Auto) 7 Urine Mucus Many HIV 1&2 Antibody Screen HIV P24 Antigen 11/11/17 11/11/17 11/11/17 03:30 04:15 04:15 WBC RBC Hgb Hct MCV MCH MCHC RDW Plt Count MPV Absolute Neuts (auto) Neutrophils % Lymphocytes % Monocytes % Eosinophils % Basophils % Nucleated RBC % Puncture Site Left brachial ABG pH 7.49 H ABG pCO2 at Pt Temp 32.3 L ABG pO2 at Pt Temp 63.1 L ABG HCO3 24.2 ABG O2 Sat (Measured) 93.0 ABG O2 Content 17.2 ABG Base Excess 1.8 Chandana Test Positive O2 Delivery Device Room air Oxygen Flow Rate No Sodium Potassium Chloride Carbon Dioxide Anion Gap BUN Creatinine Creat Clearance w eGFR Random Glucose Lactic Acid 0.9 Calcium Phosphorus Magnesium Total Bilirubin AST ALT Alkaline Phosphatase LD Total 186 Total Protein Albumin Urine Color Urine Appearance Urine pH Ur Specific [place] Urine Protein Urine Glucose (UA) Urine Ketones Urine Blood Urine Nitrite Urine Bilirubin Urine Urobilinogen Ur Leukocyte Esterase Urine WBC (Auto) Urine RBC (Auto) Urine Mucus HIV 1&2 Antibody Screen HIV P24 Antigen 11/11/17 11/11/17 11/11/17 06:45 06:45 06:45 WBC 15.4 H RBC 4.40 Hgb 12.2 Hct 36.7 MCV 83.4 MCH 27.8 MCHC 33.3 RDW 14.0 Plt Count 255 MPV 8.2 Absolute Neuts (auto) 12.6 H Neutrophils % 81.5 Lymphocytes % 10.9 D Monocytes % 6.7 Eosinophils % 0.6 D Basophils % 0.3 Nucleated RBC % 0 Puncture Site ABG pH ABG pCO2 at Pt Temp ABG pO2 at Pt Temp ABG HCO3 ABG O2 Sat (Measured) ABG O2 Content ABG Base Excess Chandana Test O2 Delivery Device Oxygen Flow Rate Sodium 137 Potassium 3.9 Chloride 102 Carbon Dioxide 23 Anion Gap 12 BUN 10 Creatinine 0.9 Creat Clearance w eGFR > 60 Random Glucose 159 H Lactic Acid Calcium 8.8 Phosphorus 2.3 L Magnesium 2.2 Total Bilirubin 0.8 AST 27 ALT 35 Alkaline Phosphatase 115 LD Total Total Protein 7.4 Albumin 3.5 Urine Color Urine Appearance Urine pH Ur Specific [place] Urine Protein Urine Glucose (UA) Urine Ketones Urine Blood Urine Nitrite Urine Bilirubin Urine Urobilinogen Ur Leukocyte Esterase Urine WBC (Auto) Urine RBC (Auto) Urine Mucus HIV 1&2 Antibody Screen Preliminary positive HIV P24 Antigen Negative Active Medications Generic Name Dose Route Start Last Admin Trade Name Freq PRN Reason Stop Dose Admin Enoxaparin Sodium 40 mg 11/11/17 10:00 11/11/17 10:54 Lovenox - SQ 40 mg DAILY GARRETT Administration Fluticasone Propionate 2 spray 11/11/17 12:45 Flonase - NS DAILY GARRETT Azithromycin 250 mg/ Dextrose 250 mls @ 250 mls/hr 11/11/17 10:00 11/11/17 12 :27 IVPB 250 mls/hr DAILY GARRETT Administration Sodium Chloride 1,000 mls @ 100 mls/hr 11/11/17 03:45 11/11/17 04:19 1/2 Normal Saline IV 100 mls/hr ASDIR GARRETT Administration Itraconazole 200 mg 11/11/17 04:30 11/11/17 05:12 Sporanox - PO 11/14/17 04:29 200 mg TID GARRETT Administration Prednisone 40 mg 11/11/17 10:00 11/11/17 10:53 Deltasone - PO 40 mg DAILY GARRETT Administration Sodium Chloride 2 spray 11/11/17 12:27 [place] Nasal [place] - NS TID PRN NASAL CONGESTION Trimethoprim/Sulfamethoxazole 530 mg 11/11/17 04:30 11/11/17 11:43 Bactrim Injection - IVPB 530 mg Q8H-IV GARRETT Administration Protocol ASSESSMENT/PLAN: 32 yo Male with PMH HIV on HAART (last viral load undetectable) admitted with Fever, myalgias and cough Sepsis Secondary to Pneumonia -Tachycardia, Febrile (103 max), WBC 19 ->15.4 -CXR noted with left base atelectasis -CT noted with ground glass / patchy infiltrates in RUL, RML, RLL, SILVINO -Has received Rocephin in ED, currently on Bactrim, Azithromycin, Itraconazole -Pulmonology consult appreciated, does not recommend IV steroids, PO prednisone ok, could benefit from Bronchoscopy if does not improve -ID consult appreciated for further antibiotic recommendation -Urine Legionella presumptive positive, less likely PCP or Histoplasmosis -Saturating well no room air with no hypoxia noted, though elevated Aa gradient noted on ABG. HIV -Compliant on HAART therapy (norvir, truvada, prezista) -Sees Dr. Rangel at [facility] for HIV management -Last viral load undetectable as per patient, attempted to contact [facility] for recent CD4 and viral load, but unable to reach and have not received call back yet, will continue to try to get outpatient records DVT Prophylaxis -Lovenox 40 mg SQ Daily FEN -Fluids: 12 NS @ 100 cc/hr -Electrolytes: Phos repleted, BMP in AM -Nutrition: Regular diet Disposition Med/Surg Visit type - Emergency Visit Emergency Visit: Yes ED Registration Date: 11/11/17 Care time: The patient presented to the Emergency Department on the above date and was hospitalized for further evaluation of their emergent condition. - New Patient This patient is new to me today: Yes Date on this admission: 11/11/17 - Critical Care Critical Care patient: No
--- NOTE | 2017-11-11 13:49 | PN ---
Teaching Attending Note Name of Resident: Pradeep Oliver ATTENDING PHYSICIAN STATEMENT I saw and evaluated the patient. I reviewed the resident's note and discussed the case with the resident. I agree with the resident's findings and plan as documented. SUBJECTIVE:improved from yesterday. slightly dyspnic at rest but cough and subjective fevers have resolved. stated he [place] last week after a few day vacation there with subjective fevers starting 4 days ago with non productive cough. no sick contacts but noted other people coughing on the plane. has no rashes or mucosal lesions. has never been treated for OI. last CD4 /VL was done in June 2017 and reports VL undetectable. has been compliant with meds and follow ups and had appt today. unknown his last PPD. no other travel other than [place] OBJECTIVE: Last Vital Signs Temp Pulse Resp BP Pulse Ox 101.6 F H 106 H 20 151/87 96 11/11/17 13:25 11/11/17 13:25 11/11/17 13:25 11/11/17 13:25 11/11/17 10:02 General NAD HEENT no cervical/submental/occipital/axillary LN. no oral lesions CV S1 S2 RRR no murmur/rub/gallop Lungs CTA B/L no wheezing/rales/rhonchi ABdomen soft NT/ND ASSESSMENT AND PLAN: 32yo M with PMH HIV on HARRT presented to the ER with fevers and cough and found to have PNA 1. Sepsis due to PNA- Tm103. with tachycardia and leukocytosis with left shift. concern for PNA however can not r/o PCP. significantly improved per pt since yesterday. breathing on RA and not hypoxic even on presentation. is currently on treatment for PNA/PCP and histoplasmosis. antifungal therapy likely not needed empirically at this time although can present in similarly in immunocompromised patients. will d/w ID. LDH normal with elevated Aa gradient. mixed reviews on improvement of HIV individuals with PCP on steroids. will leave oral steroids for now with quick taper. ID and pulmonary consulted. would benefit from a bronch if does not improve. F/u cx sent 2. HIV on HARRT- awaiting for family to bring in HARRT treatment. will call HIV clinic today to obtain recent labs and if pt has been noted to be compliant. ID on board 3. PDA s/p repair 4. DVT ppx- lovenox
[2017-11-11] MEDS: SODIUM CHLORIDE NASAL SPRAY 44 ML BOTTLE NS PRN (13:55)
[2017-11-11] MEDS: FLUTICASONE PROP 0.05% 16 GM NASAL SPRAY NS SCH (13:56)
--- NOTE | 2017-11-11 14:47 | PN ---
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 chest ct no PE- patchy bilateral infiltrates Legionella pneumonia received rocephin/zithromax today, would switch to levaquin 750 mg daily in AM f/u with PMD- suspect tcells are good and he is at low risk for PCP and bactrim and prednisone can be d/chelsey-normal LDH d/c itraconazole send sputum for legionella culture/DFA/serology HIV- continue truvada/prezista/norvir Problem List - Problems (1) Legionella pneumonia Code(s): A48.1 - LEGIONNAIRES' DISEASE (2) HIV (human immunodeficiency virus infection) Code(s): B20 - HUMAN IMMUNODEFICIENCY VIRUS [HIV] DISEASE
--- NOTE | 2017-11-11 16:18 | EKG ---
Test Reason : Blood Pressure : / mmHG Vent. Rate : 104 BPM Atrial Rate : 104 BPM P-R Int : 128 ms QRS Dur : 092 ms QT Int : 316 ms P-R-T Axes : 062 062 083 degrees QTc Int : 415 ms SINUS TACHYCARDIA POSSIBLE LEFT ATRIAL ENLARGEMENT BORDERLINE ECG NO PREVIOUS ECGS AVAILABLE Confirmed by Jeffrey Rudd ([id number]) on 11/11/2017 4:18:14 PM Referred By: Confirmed By:Jeffrey Rudd
--- NOTE | 2017-11-11 21:03 | CONS ---
DATE OF CONSULTATION: DATE OF DICTATION: 11/11/2017 INFECTIOUS DISEASE CONSULTATION REQUESTING PHYSICIAN: Hospitalist Service This is a 32-year-old man with a history of HIV for 2 years. He is on antiretroviral treatment. He just returned from [facility] after a 5-day trip there on November 03. [place] the entire [place]. He did not go swimming, as he does not know how. No water exposure. He did not set foot outside the resort. He mainly, there was a bar and activities at the hotel, which he and his sons enjoyed. He returned on November 03. On November 08, he developed fever and ear pain . He took some Theraflu and he took some homeopathic medicines. By Friday, he had a cough, he was starting to feel short of breath, and he came to the emergency room. In the ER, he was noted to have fever of 103. He had a CAT scan that showed some patchy nodular infiltrates. He was given fluid, ceftriaxone, and Zithromax. I am asked to see him for further evaluation. He is awake and alert. He still has some fever. He has a nonproductive cough. He denies feeling dyspneic, but still feels a little uncomfortable with a deep breath. He had this recent travel to [facility] for 5 days. Prior to that, he had been in [place] for 3 days. He reports a lot of the passengers on the plane were coughing. PAST MEDICAL HISTORY: Notable for HIV. He is on HAART therapy. His viral load is suppressed. He does not know his T-cells, and he had a PDA repair at age 13. Besides that, has never been in the hospital. SOCIAL HISTORY: Negative. He works for [employer]. He has a pet dog and a pet cat. No pets are sick. He has no sick contacts. He is allergic to NUTS and FRUITS. He takes ritonavir 100 mg a day, Prezista 800 a day, and Truvada 1 tablet daily. REVIEW OF SYSTEMS: He denies nausea, vomiting. He denies sore throat. His ear pain is better. PHYSICAL EXAMINATION: General: He is awake and alert. Vital Signs: Temperature 101.6, T-max 103, pulse 106, blood pressure 151/87, respiratory rate 20. He weighs 106 kg. HEENT: He is normocephalic. His eyes are anicteric. Lungs: Some crackles at the bases. Heart: Regular rate and rhythm. Abdomen: Soft, nontender. Extremities: Without edema. White count on admission was 19, this morning is 15; hemoglobin 12.2 platelets are 255. Blood gas pH was 7.49, pO2 of 63 with an O2 saturation of 93%. BUN 10 and creatinine 0.9. LFTs are normal. Urinalysis has 2+ blood. He had an influenza antigen done in the emergency room that was negative and his legionella antigen has just come back and is positive. His LDH is normal. He has a CAT scan of his chest that shows no evidence of pulmonary embolus. He had a CTA that shows bilateral infiltrates that are nodular, with consolidations in the right upper lobe. SUMMARY: This is a 32-year-old man with stable human immunodeficiency virus, with legionella pneumonia. Received Rocephin and Zithromax today; would switch to Levaquin 750 mg daily tomorrow. Follow up with his primary doctor. I suspect his T-cells are good, and he is at low risk for PCP. If that is the case, Bactrim and prednisone should be discontinued, especially with a normal LDH. Can stop the itraconazole. He received Bactrim, prednisone, itraconazole, ceftriaxone, and Zithromax in the emergency room this morning. I would send a sputum for legionella culture and DFA. Will send serology as well. Regarding his HIV, would continue his Truvada, Prezista, and Norvir. Further recommendations to follow. The case was discussed with the hospitalist. SARAH AVILES M.D. [id number]
--- NOTE | 2017-11-12 07:22 | PN ---
Physical Exam: SUBJECTIVE: Patient seen and examined this AM. He states that his breathing is better today but he is still having some cough. He says that he took his HIV medications today and is a little short of breath, but that this is very normal for him. He states that he is always a little short of breath for about an hour after he takes his medications. He is otherwise up and moving around the room and says that he was able to wash up in the bathroom with only a little shortness of breath. Of note - I spoke with his ID specialist from [facility] yesterday evening who says his CD4 count has been >1000 for over a year with an undetectable viral load as well. OBJECTIVE: Vital Signs Period Temp Pulse Resp BP Sys/Jameson Pulse Ox Last 24 Hr 98.3 F-101.6 F 77-106 17-20 133-151/76-93 96-96 GENERAL: A&O, no acute distress HEAD: Normocephalic, atraumatic. EYES: PERRL, no scleral icterus EARS, NOSE, THROAT: oropharynx clear without exudates. Moist mucous membranes. NECK: supple without lymphadenopathy LUNGS: CTA b/l, no crackles or wheezes HEART: Regular rate and rhythm, normal S1 and S2 without murmur ABDOMEN: Soft, obese, nontender to palpation, normoactive bowel sounds MUSCULOSKELETAL: No bony deformities or tenderness. EXTREMITIES: 2+ pulses, warm, well-perfused. No peripheral edema. NEUROLOGICAL: Cranial nerves II-XII grossly intact. Normal speech. PSYCHIATRIC: Cooperative. Good eye contact. Appropriate mood and affect. Laboratory Results - last 24 hr 11/11/17 11/11/17 11/11/17 06:45 06:45 06:45 WBC 15.4 H RBC 4.40 Hgb 12.2 Hct 36.7 MCV 83.4 MCH 27.8 MCHC 33.3 RDW 14.0 Plt Count 255 MPV 8.2 Absolute Neuts (auto) 12.6 H Neutrophils % 81.5 Lymphocytes % 10.9 D Monocytes % 6.7 Eosinophils % 0.6 D Basophils % 0.3 Nucleated RBC % 0 Sodium 137 Potassium 3.9 Chloride 102 Carbon Dioxide 23 Anion Gap 12 BUN 10 Creatinine 0.9 Creat Clearance w eGFR > 60 Random Glucose 159 H Calcium 8.8 Phosphorus 2.3 L Magnesium 2.2 Total Bilirubin 0.8 AST 27 ALT 35 Alkaline Phosphatase 115 Total Protein 7.4 Albumin 3.5 HIV 1&2 Antibody Screen Preliminary positive HIV P24 Antigen Negative Active Medications Generic Name Dose Route Start Last Admin Trade Name Cecile PRN Reason Stop Dose Admin Enoxaparin Sodium 40 mg 11/11/17 10:00 11/11/17 10:54 Lovenox - SQ 40 mg DAILY GARRETT Administration Fluticasone Propionate 2 spray 11/11/17 12:45 11/11/17 13:56 Flonase - NS 2 sprays DAILY GARRETT Administration Sodium Chloride 1,000 mls @ 100 mls/hr 11/11/17 03:45 11/11/17 23:22 1/2 Normal Saline IV 100 mls/hr ASDIR GARRETT Administration Sodium Chloride 2 spray 11/11/17 12:27 11/11/17 13:55 [place] Nasal [place] - NS 2 sprays TID PRN Administration NASAL CONGESTION ASSESSMENT/PLAN: 32 yo Male with PMH HIV on HAART (last viral load undetectable) admitted with Fever, myalgias and cough Sepsis Secondary to Pneumonia -Tachycardia, Febrile (103 max), WBC 19 ->15.4 -> 15.1 -Afebrile overnight, tachycardia resolved, WBC trending down -CXR noted with left base atelectasis -CT noted with ground glass / patchy infiltrates in RUL, RML, RLL, SILVINO -Received Rocephin in ED, currently on Bactrim, Azithromycin, Itraconazole -Pulmonology consult appreciated, does not recommend IV steroids -Prednisone and Bactrim discontinued yesterday as there is no need for PCP coverage at this time -Saturating well no room air with no hypoxia noted, though elevated Aa gradient noted on ABG -ID consult appreciated for further antibiotic recommendation -Urine Legionella presumptive positive, confirmatory sputum ordered -Pt Currently on Levaquin 750 mg IV Daily -Will watch one more night and can possibly d/c tomorrow HIV -Compliant on HAART therapy (norvir, truvada, prezista) -Sees Dr. Rangel at [facility] for HIV management - discussed with yesterday evening , CD4 >1000 on all recent checks over last year with undetectable viral load -Does not need coverage for PCP at this time DVT Prophylaxis -Lovenox 40 mg SQ Daily FEN -Fluids: 1/2 NS @ 100 cc/hr -Electrolytes: Phos repleted, BMP in AM -Nutrition: Regular diet Disposition Med/Surg, can possibly d/c tomorrow pending continued improvement Visit type - Emergency Visit Emergency Visit: Yes ED Registration Date: 11/11/17 Care time: The patient presented to the Emergency Department on the above date and was hospitalized for further evaluation of their emergent condition. - New Patient This patient is new to me today: No - Critical Care Critical Care patient: No
[2017-11-12] MEDS ORDERED: ACETAMINOPHEN 325 MG TABLET (FP) PO PRN (07:23)
[2017-11-12 08:20] LABS: BASO % 0.1 % (0-2.0); EOS % 0.4 % (0-4.5); HEMATOCRIT 36.7 % (35.4-49); HEMOGLOBIN 12.3 GM/dL (11.7-16.9); LYMPH % 15.3 % (8-40); MCH 28.1 pg (25.7-33.7); MCHC 33.6 g/dl (32.0-35.9); MEAN CELL VOLUME 83.8 fl (80-96); MEAN PLT VOLUME 8.3 fl (7.5-11.1); MONO % 7.1 % (3.8-10.2); NEUT % 77.1 % (42.8-82.8); PLATELET COUNT 283 K/MM3 (134-434); RBC 4.38 M/mm3 (4.00-5.60); RDW 14.3 % (11.9-15.9); WHITE BLOOD COUNT 15.1 K/mm3 (4.0-10.0)
[2017-11-12 08:22] LABS: ANION GAP 8 MMOL/L (8-16); BLOOD UREA NITROGEN 10 mg/dL (7-18); CALCIUM 9.2 mg/dL (8.5-10.1); CHLORIDE 103 mmol/L (98-107); CO2 25 mmol/L (21-32); CREATININE 0.9 mg/dL (0.55-1.3); GLUCOSE,RANDOM 83 mg/dL (74-106); MAGNESIUM 2.6 mg/dL (1.8-2.4); PHOSPHOROUS 3.8 mg/dL (2.5-4.9); POTASSIUM 4.2 mmol/L (3.5-5.1); SODIUM 136 mmol/L (136-145)
[2017-11-12] MEDS ORDERED: PT OWN MED DRAWER 7, Y5N ONE (09:59)
[2017-11-12] MEDS: FLUTICASONE PROP 0.05% 16 GM NASAL SPRAY NS SCH (10:01)
[2017-11-12] MEDS: SODIUM CHLORIDE NASAL SPRAY 44 ML BOTTLE NS PRN (10:01)
[2017-11-12] MEDS: SODIUM CHLORIDE 0.45% 1,000 ML IV SCH (10:02)
[2017-11-12] MEDS: ENOXAPARIN NA (PORCINE) 40 MG/0.4 ML DISP.SYRIN SQ SCH (10:03)
--- NOTE | 2017-11-12 10:37 | PN ---
Teaching Attending Note Name of Resident: Pradeep Oliver ATTENDING PHYSICIAN STATEMENT I saw and evaluated the patient. I reviewed the resident's note and discussed the case with the resident. I agree with the resident's findings and plan as documented. SUBJECTIVE:overall improved. dyspnea on exertion. denies CP, SOB, fever, chills , N/V/C/D OBJECTIVE: Last Vital Signs Temp Pulse Resp BP Pulse Ox 98.4 F 87 20 153/86 96 11/12/17 09:00 11/12/17 09:00 11/12/17 09:00 11/12/17 09:00 11/11/17 21:00 General NAD Lungs CTA B/L no wheezing/rales/rhonchi ASSESSMENT AND PLAN: 32yo M with PMH HIV on HARRT presented to the ER with fevers and cough and found to have PNA 1. Sepsis due to PNA- Tm101.6. with stable leukocytosis. symptomatic on exertion. +Uag for legionella. d/w HIV clinic and CD4 count has been stable in 1000+ for over a year. bactrim and steroids d/c. will switch to Levaquin and monitor for improvement. Qtc WNL. ID and pulmonary consulted. would benefit from a bronch if does not improve. F/u cx sent 2. HIV on HARRT- cont home regimen. last VL undetectable. CD4 >1000. ID on board 3. PDA s/p repair 4. DVT ppx- lovenox
--- NOTE | 2017-11-12 10:37 | PN ---
Progress Note (short form) - Note Progress Note: Feels better today. Cough and sinus RICHARDS is better. No hemoptysis. (+) Legionella Intake & Output 11/09/17 11/10/17 11/11/17 11/12/17 23:59 23:59 23:59 23:59 Intake Total 2400 1200 Balance 2400 1200 Weight 234 lb 234 lb Last Vital Signs Temp Pulse Resp BP Pulse Ox 98.4 F 87 20 153/86 96 11/12/17 09:00 11/12/17 09:00 11/12/17 09:00 11/12/17 09:00 11/11/17 21:00 Active Medications Acetaminophen (Tylenol -) 650 mg PO Q6H PRN PRN Reason: PAIN OR FEVER Enoxaparin Sodium (Lovenox -) 40 mg SQ DAILY [facility] Last Admin: 11/12/17 10:03 Dose: 40 mg Fluticasone Propionate (Flonase -) 2 spray NS DAILY [facility] Last Admin: 11/12/17 10:01 Dose: 2 sprays Sodium Chloride (1/2 Normal Saline) 1,000 mls @ 100 mls/hr IV ASDIR [facility] Last Admin: 11/12/17 10:02 Dose: 100 mls/hr Levofloxacin (Levaquin 750 Mg Premixed Ivpb -) 750 mg in 150 mls @ 100 mls/hr IVPB ONCE ONE; Protocol Stop: 11/12/17 11:29 Last Admin: 11/12/17 10:02 Dose: 100 mls/hr Sodium Chloride ([place] Nasal [place] -) 2 spray NS TID PRN PRN Reason: NASAL CONGESTION Last Admin: 11/12/17 10:01 Dose: 2 sprays Constitutional: Yes: Well Nourished, No Distress, Calm, Obese Eyes: Yes: Conjunctiva Clear, EOM Intact HENT: Yes: Atraumatic, Normocephalic Neck: Yes: Supple, Trachea Midline Cardiovascular: Yes: Regular Rate and Rhythm Respiratory: Yes: Few rhonchi. No: Accessory Muscle Use, On Nasal O2, Rales, Rhonchi, SOB, Stridor, Tachypnea, Wheezes ...Inspection: Yes: WNL ...Clubbing: No Gastrointestinal: Yes: Normal Bowel Sounds, Soft Renal/: Yes: WNL Musculoskeletal: Yes: WNL Extremities: Yes: WNL Edema: No Peripheral Pulses WNL: Yes Integumentary: Yes: WNL Neurological: Yes: WNL, Alert, Oriented ...Motor Strength: WNL Psychiatric: Yes: WNL, Alert, Oriented Labs: Laboratory Results - last 24 hr 11/12/17 11/12/17 06:30 06:30 WBC 15.1 H RBC 4.38 Hgb 12.3 Hct 36.7 MCV 83.8 MCH 28.1 MCHC 33.6 RDW 14.3 Plt Count 283 MPV 8.3 Absolute Neuts (auto) 11.7 H Neutrophils % 77.1 Lymphocytes % 15.3 D Monocytes % 7.1 Eosinophils % 0.4 Basophils % 0.1 Nucleated RBC % 0 Sodium 136 Potassium 4.2 Chloride 103 Carbon Dioxide 25 Anion Gap 8 BUN 10 Creatinine 0.9 Creat Clearance w eGFR > 60 Random Glucose 83 Calcium 9.2 Phosphorus 3.8 Magnesium 2.6 H Problem List - Problems (1) HIV (human immunodeficiency virus infection) Code(s): B20 - HUMAN IMMUNODEFICIENCY VIRUS [HIV] DISEASE (2) Pneumonia Code(s): J18.9 - PNEUMONIA, UNSPECIFIED ORGANISM Qualifiers: Pneumonia type: due to unspecified organism Laterality: unspecified laterality Lung location: unspecified part of lung Qualified Code(s): J18.9 - Pneumonia, unspecified organism (3) Allergic rhinitis Code(s): J30.9 - ALLERGIC RHINITIS, UNSPECIFIED Assessment/Plan Legionella PNA Levaquin Steroids for CAP O2 as needed to maintain saturation. At present he is not hypoxic and appears comfortable VTE prophylaxis Dr Ocampo Problem List - Problems (1) HIV (human immunodeficiency virus infection) Code(s): B20 - HUMAN IMMUNODEFICIENCY VIRUS [HIV] DISEASE (2) Pneumonia Code(s): J18.9 - PNEUMONIA, UNSPECIFIED ORGANISM Qualifiers: Qualified Code(s): J18.9 - Pneumonia, unspecified organism (3) Allergic rhinitis Code(s): J30.9 - ALLERGIC RHINITIS, UNSPECIFIED
[2017-11-12] MEDS: predniSONE 20 MG TABLET (UD) PO SCH (11:41)
--- NOTE | 2017-11-12 13:49 | PN ---
Progress Note (short form) - Note Progress Note: no fever today cd4 over 1200 bactrim d/chelsey yesterday Vital Signs Period Temp Pulse Resp BP Sys/Jameson Pulse Ox Last 24 Hr 98.3 F-98.5 F 77-87 20-20 133-153/76-93 96-97 cor-rrr lungs decreased bs at bases abd soft,nt ext no edema CBC, BMP 11/12/17 06:30 11/12/17 06:30 Microbiology 11/12/17 08:30 Urine For Antigen Detection Legionella Antigen - Final 11/12/17 08:30 Urine For Antigen Detection Streptococcus pneumoniae Antigen (M - Final 11/11/17 02:22 Blood - Peripheral Venous Blood Culture - Preliminary NO GROWTH OBTAINED AFTER 24 HOURS, INCUBATION TO CONTINUE FOR 4 DAYS. 11/11/17 02:22 Blood - Peripheral Venous Blood Culture - Preliminary NO GROWTH OBTAINED AFTER 24 HOURS, INCUBATION TO CONTINUE FOR 4 DAYS. 11/11/17 05:39 Urine For Antigen Detection Legionella Antigen - Final 11/11/17 05:39 Urine For Antigen Detection Streptococcus pneumoniae Antigen (M - Final 11/10/17 20:48 Nasopharyngeal Swab Influenza Types A,B Antigen - Final 11/10/17 20:48 Nasopharyngeal Swab - Final a/p Legionella pneumonia day #2 antibiotics plan to continue levaquin send sputum for legionella culture/DFA/serology d/w patient, d/w infection control nurse, [facility] informed HIV- continue truvada/prezista/norvir Problem List - Problems (1) Legionella pneumonia Code(s): A48.1 - LEGIONNAIRES' DISEASE (2) HIV (human immunodeficiency virus infection) Code(s): B20 - HUMAN IMMUNODEFICIENCY VIRUS [HIV] DISEASE
[2017-11-12] MEDS ORDERED: guaiFENesin 600 MG TABLET.ER (FP) PO ONE (20:18)
[2017-11-13 06:50] LABS: BASO % 0.3 % (0-2.0); EOS % 0.1 % (0-4.5); HEMATOCRIT 36.2 % (35.4-49); HEMOGLOBIN 11.9 GM/dL (11.7-16.9); LYMPH % 16.5 % (8-40); MCH 27.8 pg (25.7-33.7); MEAN CELL VOLUME 84.3 fl (80-96); MEAN PLT VOLUME 8.1 fl (7.5-11.1); MONO % 5.7 % (3.8-10.2); NEUT % 77.4 % (42.8-82.8); PLATELET COUNT 320 K/MM3 (134-434); RDW 14.3 % (11.9-15.9)
[2017-11-13] MEDS ORDERED: PT OWN MED DRAWER 7, Y5N ONE (10:15)
[2017-11-13] MEDS: ENOXAPARIN NA (PORCINE) 40 MG/0.4 ML DISP.SYRIN SQ SCH (10:22)
[2017-11-13] MEDS: predniSONE 20 MG TABLET (UD) PO SCH (10:22)
[2017-11-13] MEDS: FLUTICASONE PROP 0.05% 16 GM NASAL SPRAY NS SCH (10:22)
--- NOTE | 2017-11-13 13:58 | PN ---
Progress Note (short form) - Note Progress Note: Continues to feel better. No sinus RICHARDS cough further improved. No hemoptysis. Intake & Output 11/10/17 11/11/17 11/12/17 11/13/17 23:59 23:59 23:59 23:59 Intake Total 2400 3450 1200 Balance 2400 3450 1200 Weight 234 lb 234 lb Last Vital Signs Temp Pulse Resp BP Pulse Ox 98.0 F 84 20 138/75 95 11/13/17 05:52 11/13/17 05:52 11/13/17 05:52 11/13/17 05:52 11/12/17 21:00 Active Medications Acetaminophen (Tylenol -) 650 mg PO Q6H PRN PRN Reason: PAIN OR FEVER Enoxaparin Sodium (Lovenox -) 40 mg SQ DAILY [facility] Last Admin: 11/13/17 10:22 Dose: 40 mg Fluticasone Propionate (Flonase -) 2 spray NS DAILY [facility] Last Admin: 11/13/17 10:22 Dose: 2 sprays Prednisone (Deltasone -) 40 mg PO DAILY [facility] Stop: 11/15/17 10:01 Last Admin: 11/13/17 10:22 Dose: 40 mg Sodium Chloride ([place] Nasal [place] -) 2 spray NS TID PRN PRN Reason: NASAL CONGESTION Last Admin: 11/12/17 10:01 Dose: 2 sprays Constitutional: Yes: Well Nourished, No Distress, Calm, Obese Eyes: Yes: Conjunctiva Clear, EOM Intact HENT: Yes: Atraumatic, Normocephalic Neck: Yes: Supple, Trachea Midline Cardiovascular: Yes: Regular Rate and Rhythm Respiratory: Yes: Few rhonchi. No: Accessory Muscle Use, On Nasal O2, Rales, Rhonchi, SOB, Stridor, Tachypnea, Wheezes ...Inspection: Yes: WNL ...Clubbing: No Gastrointestinal: Yes: Normal Bowel Sounds, Soft Renal/: Yes: WNL Musculoskeletal: Yes: WNL Extremities: Yes: WNL Edema: No Peripheral Pulses WNL: Yes Integumentary: Yes: WNL Neurological: Yes: WNL, Alert, Oriented ...Motor Strength: WNL Psychiatric: Yes: WNL, Alert, Oriented Labs: Laboratory Results - last 24 hr 11/11/17 11/13/17 06:45 06:30 WBC 13.0 H RBC 4.30 Hgb 11.9 Hct 36.2 MCV 84.3 MCH 27.8 MCHC 33.0 RDW 14.3 Plt Count 320 MPV 8.1 Absolute Neuts (auto) 10.1 H Neutrophils % 77.4 Lymphocytes % 16.5 Monocytes % 5.7 Eosinophils % 0.1 Basophils % 0.3 Nucleated RBC % 0 HIV-1 Antibody Positive H HIV-2 Antibody Negative HIV 1&2 Ag/Ab, 4th Gen Reactive H HIV Note Hiv-1 positive Problem List - Problems (1) HIV (human immunodeficiency virus infection) Code(s): B20 - HUMAN IMMUNODEFICIENCY VIRUS [HIV] DISEASE (2) Pneumonia Code(s): J18.9 - PNEUMONIA, UNSPECIFIED ORGANISM Qualifiers: Pneumonia type: due to unspecified organism Laterality: unspecified laterality Lung location: unspecified part of lung Qualified Code(s): J18.9 - Pneumonia, unspecified organism (3) Allergic rhinitis Code(s): J30.9 - ALLERGIC RHINITIS, UNSPECIFIED Assessment/Plan Legionella PNA Levaquin Steroids for CAP O2 as needed to maintain saturation. At present he is not hypoxic and appears comfortable VTE prophylaxis Dr Ocampo Problem List - Problems (1) HIV (human immunodeficiency virus infection) Code(s): B20 - HUMAN IMMUNODEFICIENCY VIRUS [HIV] DISEASE (2) Pneumonia Code(s): J18.9 - PNEUMONIA, UNSPECIFIED ORGANISM Qualifiers: Pneumonia type: due to unspecified organism Laterality: unspecified laterality Lung location: unspecified part of lung Qualified Code(s): J18.9 - Pneumonia, unspecified organism (3) Allergic rhinitis Code(s): J30.9 - ALLERGIC RHINITIS, UNSPECIFIED
--- NOTE | 2017-11-13 14:31 | PN ---
Progress Note (short form) - Note Progress Note: doing well no fevers dry cough wants to go home Vital Signs Period Temp Pulse Resp BP Sys/Jameson Pulse Ox Last 24 Hr 98.0 F-98.4 F 77-90 20-20 138-147/74-75 95 cor-rrr lungs clear abd soft,nt ext no edema CBC, BMP 11/13/17 06:30 11/12/17 06:30 a/p legionella pneumonia- day #3 antibiotics today would treat total 10 days would check oxygen saturation with ambulation to make sure he does not desaturate d/w pulmonary he can f/u with his PMD who is an ID doctor should have convalescent legionella serology hiv- to continue ART Problem List - Problems (1) Legionella pneumonia Code(s): A48.1 - LEGIONNAIRES' DISEASE (2) HIV (human immunodeficiency virus infection) Code(s): B20 - HUMAN IMMUNODEFICIENCY VIRUS [HIV] DISEASE
--- NOTE | 2017-11-13 16:57 | PN ---
Teaching Attending Note Name of Resident: Pradeep Oliver ATTENDING PHYSICIAN STATEMENT I saw and evaluated the patient. I reviewed the resident's note and discussed the case with the resident. I agree with the resident's findings and plan as documented. SUBJECTIVE:clinically improved. states no longer dyspnic on exertion. has occasional dry cough. denies CP, SOB, fever, chills, N/V/C/D OBJECTIVE: Last Vital Signs Temp Pulse Resp BP Pulse Ox 98.3 F 107 H 18 140/91 92 L 11/13/17 14:00 11/13/17 15:22 11/13/17 14:00 11/13/17 14:00 11/13/17 15:22 General NAD Lungs CTA B/L no wheezing/rales/rhonchi ASSESSMENT AND PLAN: 32yo M with PMH HIV on HARRT presented to the ER with fevers and cough and found to have PNA 1. Sepsis due to PNA-afebrile >24H. leukocytosis trending down. clinically improved. on Levaquin day 3 of total abx. will d/w ID about abx duration. on steroids while hospitalized will liekly not require on discharge. will need repeat imaging in 6 weeks to evaluate resolution of PNA. Legionella confirmation pending. 2. HIV on HARRT- cont home regimen. last VL undetectable. CD4 >1000. ID on board 3. PDA s/p repair 4. DVT ppx- lovenox 5. anticipate d/c in next 24H
--- NOTE | 2017-11-13 18:58 | PN ---
Physical Exam: SUBJECTIVE: Patient seen and examined this AM. States that he is feeling better but is still a little short of breath on exertion and when he is up and ambulating. Denies fevers, chills, myalgias, or other overnight events. Pt given Mucinex for coughing with little relief. OBJECTIVE: Vital Signs Period Temp Pulse Resp BP Sys/Jameson Pulse Ox Last 24 Hr 97.8 F-98.4 F 77-107 18-20 138-159/74-94 92-95 GENERAL: A&O, no acute distress HEAD: Normocephalic, atraumatic. EYES: PERRL, no scleral icterus EARS, NOSE, THROAT: oropharynx clear without exudates. Moist mucous membranes. NECK: supple without lymphadenopathy LUNGS: CTA b/l, no crackles or wheezes HEART: Regular rate and rhythm, normal S1 and S2 without murmur ABDOMEN: Soft, obese, nontender to palpation, normoactive bowel sounds MUSCULOSKELETAL: No bony deformities or tenderness. EXTREMITIES: 2+ pulses, warm, well-perfused. No peripheral edema. NEUROLOGICAL: Cranial nerves II-XII grossly intact. Normal speech. PSYCHIATRIC: Cooperative. Good eye contact. Appropriate mood and affect. Laboratory Results - last 24 hr 11/11/17 11/13/17 06:45 06:30 WBC 13.0 H RBC 4.30 Hgb 11.9 Hct 36.2 MCV 84.3 MCH 27.8 MCHC 33.0 RDW 14.3 Plt Count 320 MPV 8.1 Absolute Neuts (auto) 10.1 H Neutrophils % 77.4 Lymphocytes % 16.5 Monocytes % 5.7 Eosinophils % 0.1 Basophils % 0.3 Nucleated RBC % 0 HIV-1 Antibody Positive H HIV-2 Antibody Negative HIV 1&2 Ag/Ab, 4th Gen Reactive H HIV Note Hiv-1 positive Active Medications Generic Name Dose Route Start Last Admin Trade Name Freq PRN Reason Stop Dose Admin Acetaminophen 650 mg 11/12/17 07:23 Tylenol - PO Q6H PRN PAIN OR FEVER Enoxaparin Sodium 40 mg 11/11/17 10:00 11/13/17 10:22 Lovenox - SQ 40 mg DAILY GARRETT Administration Fluticasone Propionate 2 spray 11/11/17 12:45 11/13/17 10:22 Flonase - NS 2 sprays DAILY GARRETT Administration Levofloxacin 750 mg in 150 mls @ 100 mls/hr 11/13/17 14:30 11/13/17 15:51 Levaquin 750 Mg Premixed Ivpb - IVPB 100 mls/hr DAILY GARRETT Administration Protocol Prednisone 40 mg 11/12/17 11:30 11/13/17 10:22 Deltasone - PO 11/15/17 10:01 40 mg DAILY GARRETT Administration Sodium Chloride 2 spray 11/11/17 12:27 11/12/17 10:01 [place] Nasal [place] - NS 2 sprays TID PRN Administration NASAL CONGESTION ASSESSMENT/PLAN: 32 yo Male with PMH HIV on HAART (last viral load undetectable) admitted with Fever, myalgias and cough Sepsis Secondary to Pneumonia -Tachycardia, Febrile (103 max), WBC 19 ->15.4 -> 15.1 -> 13 -Afebrile overnight, tachycardia resolved, WBC trending down -CXR noted with left base atelectasis -CT noted with ground glass / patchy infiltrates in RUL, RML, RLL, SILVINO -Received Rocephin in ED, currently on Bactrim, Azithromycin, Itraconazole -Pulmonology consult appreciated, PO prednisone while inpatient -Saturating well no room air with no hypoxia noted, though elevated Aa gradient noted on ABG -ID consult appreciated for further antibiotic recommendation -Urine Legionella presumptive positive, confirmatory sputum ordered -Pt Currently on Levaquin 750 mg IV Daily, will convert to PO on d/c -Still SOB with exertion, will watch one more night and can possibly d/c tomorrow HIV -Compliant on HAART therapy (norvir, truvada, prezista) -Sees Dr. Rangel at [facility] for HIV management - discussed with yesterday evening , CD4 >1000 on all recent checks over last year with undetectable viral load -Does not need coverage for PCP at this time DVT Prophylaxis -Lovenox 40 mg SQ Daily FEN -Fluids: none -Electrolytes: no abnormalities -Nutrition: Regular diet Disposition Med/Surg, can probably d/c tomorrow pending continued improvement Visit type - Emergency Visit Emergency Visit: Yes ED Registration Date: 11/11/17 Care time: The patient presented to the Emergency Department on the above date and was hospitalized for further evaluation of their emergent condition. - New Patient This patient is new to me today: No - Critical Care Critical Care patient: No
[2017-11-14 07:53] LABS: BASO % 0.6 % (0-2.0); EOS % 0.2 % (0-4.5); HEMATOCRIT 40.6 % (35.4-49); HEMOGLOBIN 13.5 GM/dL (11.7-16.9); LYMPH % 27.2 % (8-40); MCH 27.5 pg (25.7-33.7); MCHC 33.2 g/dl (32.0-35.9); MEAN PLT VOLUME 7.9 fl (7.5-11.1); MONO % 5.2 % (3.8-10.2); NEUT % 66.8 % (42.8-82.8); PLATELET COUNT 404 K/MM3 (134-434); RBC 4.89 M/mm3 (4.00-5.60); RDW 14.8 % (11.9-15.9); WHITE BLOOD COUNT 13.6 K/mm3 (4.0-10.0)
[2017-11-14] MEDS: FLUTICASONE PROP 0.05% 16 GM NASAL SPRAY NS SCH (10:02)
[2017-11-14] MEDS: ENOXAPARIN NA (PORCINE) 40 MG/0.4 ML DISP.SYRIN SQ SCH (10:03)
[2017-11-14] MEDS: predniSONE 20 MG TABLET (UD) PO SCH (10:13)
--- NOTE | 2017-11-14 10:49 | PN ---
Progress Note (short form) - Note Progress Note: doing well dry cough wants to go home Vital Signs Period Temp Pulse Resp BP Sys/Jameson Pulse Ox Last 24 Hr 98.2 F-99.6 F 62-107 18-20 115-140/66-91 92-95 cor-rrr lungs clear abd soft,nt ext no edema CBC, BMP 11/14/17 07:33 11/12/17 06:30 a/p legionella pneumonia- day #4 antibiotics today would treat total 14 days given HIV status would check oxygen saturation with ambulation to make sure he does not desaturate add probiotics for next one month he can f/u with his PMD who is an ID doctor should have convalescent legionella serology hiv- to continue ART Problem List - Problems (1) Legionella pneumonia Code(s): A48.1 - LEGIONNAIRES' DISEASE (2) HIV (human immunodeficiency virus infection) Code(s): B20 - HUMAN IMMUNODEFICIENCY VIRUS [HIV] DISEASE
[2017-11-14] MEDS ORDERED: LACTOBACILLUS ACIDOPHILUS 1 TABLET PO SCH (11:00)
--- NOTE | 2017-11-14 11:34 | PN ---
Teaching Attending Note Name of Resident: Pradeep Oliver ATTENDING PHYSICIAN STATEMENT I saw and evaluated the patient. I reviewed the resident's note and discussed the case with the resident. I agree with the resident's findings and plan as documented. SUBJECTIVE:dyspnea on exertion improved. ambulation without difficulty. non productive cough. denies CP, fever, chills OBJECTIVE: Last Vital Signs Temp Pulse Resp BP Pulse Ox 98.2 F 62 18 129/71 95 11/14/17 06:02 11/14/17 06:02 11/14/17 06:02 11/14/17 06:02 11/13/17 21:00 General NAD Lungs CTA B/L no wheezing/rales/rhonchi ASSESSMENT AND PLAN: 32yo M with PMH HIV on HARRT presented to the ER with fevers and cough and found to have PNA 1. Sepsis due to PNA-afebrile >48H. leukocytosis stable. clinically improved. on Levaquin day 4 of total abx. will need a total of 14 days. will need repeat imaging in 6 weeks to evaluate resolution of PNA. Legionella confirmation pending. 2. HIV on HARRT- cont home regimen. last VL undetectable. CD4 >1000. ID on board 3. PDA s/p repair 4. DVT ppx- lovenox 5. d/c home with follow up with ID specialist.
[2017-11-14 12:24] VITALS: BP 137/84; PULSE 94; TEMP 98.3
--- NOTE | 2017-11-14 17:11 | DS ---
Physical Exam: SUBJECTIVE: Patient seen and examined this AM. He states that he is feeling better each day and hopes to go home. He mentioned having some periods of sweating but stated that the room was warm and he was sleeping under multiple blankets. OBJECTIVE: Vital Signs Period Temp Pulse Resp BP Sys/Jameson Pulse Ox Last 24 Hr 98.2 F-99.6 F 62-94 18-20 115-137/66-84 95-95 PHYSICAL EXAM GENERAL: A&O, no acute distress HEAD: Normocephalic, atraumatic. EYES: PERRL, no scleral icterus EARS, NOSE, THROAT: oropharynx clear without exudates. Moist mucous membranes. NECK: supple without lymphadenopathy LUNGS: CTA b/l, no crackles or wheezes HEART: Regular rate and rhythm, normal S1 and S2 without murmur ABDOMEN: Soft, obese, nontender to palpation, normoactive bowel sounds MUSCULOSKELETAL: No bony deformities or tenderness. EXTREMITIES: 2+ pulses, warm, well-perfused. No peripheral edema. NEUROLOGICAL: Cranial nerves II-XII grossly intact. Normal speech. PSYCHIATRIC: Cooperative. Good eye contact. Appropriate mood and affect. LABS Laboratory Results - last 24 hr 11/14/17 07:33 WBC 13.6 H RBC 4.89 Hgb 13.5 Hct 40.6 MCV 83.0 MCH 27.5 MCHC 33.2 RDW 14.8 Plt Count 404 D MPV 7.9 Absolute Neuts (auto) 9.1 H Neutrophils % 66.8 Lymphocytes % 27.2 D Monocytes % 5.2 Eosinophils % 0.2 D Basophils % 0.6 Nucleated RBC % 0 IMAGING: CXR: elevated left hemidiaphragm with Left base atelectasis, mediastinal clip, prominent mediastinum, some coarse changes in right mid and lower lung field. CT Chest: No evidence of pulmonary artery emboli, elevation of left hemidiaphragm with rightward deviation of mediastinal structures, b/l infiltrates with congestion in the RUL, and patchy infiltrates throughout the rest of the lungs. HOSPITAL COURSE: Date of Admission:11/11/17 Date of Discharge: 11/14/17 32 yo Male with PMH HIV on HAART (last viral load undetectable and CD4 >1200 as per his ID doctor at [facility]) admitted with Fever, myalgias and cough was diagnosed with sepsis secondary to community acquired pneumonia as pt had temperature 103 and was tachycardic to the 110s. Legionella antigen was positive in the urine X2. Confirmatory sputum culture was sent. Pt was treated with IV Levaquin and improved. He was seen by ID and pulmonology during his admission. He was also given PO Prednisone while he was in the hospital. He improved and was deemed medically safe for discharge with continued PO levaquin for a total of 14 days. Steroids were discontinued on discharge. Minutes to complete discharge: 35 Discharge Summary Reason For Visit: PNEUMONIA LEUKOCYTOSIS FEVER Condition: Stable - Instructions Diet, Activity, Other Instructions: You were admitted for a sepsis secondary to pneumonia. You were treated with IV antibiotics and improved quickly. It was determined that you were safe for discharge and the antibiotics were converted to oral antibiotics. You should continue taking the Levaquin 750 mg (antibiotic) by mouth once daily for 9 more days for a total of 14 days of antibiotics. You will need repeat imaging in 6 weeks to ensure everything clears. Otherwise you should resume all of your home medications as they are prescribed prior to your admission to the hospital. You should follow up with your primary care physician within 1 week of discharge from the hospital. You should also follow up with your ID specialist in the clinic within 1-2 weeks for appropriate outpatient follow up of your medical conditions. If your fever returns or your cough severely worsens, you should call your doctor or return to the emergency department. Disposition: HOME - Home Medications Comprehensive Discharge Medication List: Ambulatory Orders Darunavir Ethanolate [Prezista] 800 mg PO DAILY 11/11/17 Emtricitabine/Tenofovir (Tdf) [Truvada 200 mg-300 mg Tablet] 200 mg PO DAILY Ritonavir 100 mg PO DAILY 11/11/17 Lactobacillus Acidophilus [Bacid -] 1 each PO DAILY #30 capsule 11/14/17 levoFLOXacin [Levaquin] 750 mg PO DAILY #9 tab 11/14/17 This patient is new to me today: No Emergency Visit: Yes ED Registration Date: 11/11/17 Care time: The patient presented to the Emergency Department on the above date and was hospitalized for further evaluation of their emergent condition. Critical Care patient: No - Discharge Referral Referred to [facility] No
== END 2017-11-14 14:14 | disposition home or self-care (01) | DRG 976 ==
LOC: JER 20:23 → JERBED 11-11 02:49 → UNDOADMOB 11-11 03:03 → OBSVTOIN 11-11 03:16 → J6S 11-11 08:01
PROVIDERS: ADMIT Internal Medicine; ATTEND Internal Medicine
DX: A48.1 Legionnaires' disease (principal); B20 Human immunodeficiency virus [HIV] disease; J18.9 Pneumonia, unspecified organism; E66.9 Obesity, unspecified; Z68.31 Body mass index [BMI] 31.0-31.9, adult; J30.9 Allergic rhinitis, unspecified
CPT/HCPCS: 36415; 36600; 71046-TC-FY; 71250-TC; 80048; 80053; 81003; 81015; 82803; 83605; 83615; 83735; 84100; 85025; 86713; 87040; 87389; 87804; 87899; 90688; 93005; 93010; 94761; 99284-25; G0008; G0378; J7030

== ENCOUNTER 2018-01-26 13:40 | Emergency (ER) | payer OTHER ==
--- NOTE | 2018-01-26 13:49 | PDOC ---
Rapid Medical Evaluation Chief Complaint: Cold Symptoms Time Seen by Provider: 01/26/18 13:43 Medical Evaluation: Allergies Allergy/AdvReac Type Severity Reaction Status Date / Time nut - unspecified Allergy Severe Swelling Verified 01/26/18 13:43 fruit Allergy Severe Swelling Uncoded 01/26/18 13:43 01/26/18 13:44 I have performed a brief in-person evaluation of this patient. The patient presents with a chief complaint of: cough/ No fevers and chills - legioneires pneumonia Sept. Pertinent physical exam findings: well appearing , no wheezing / cough I have ordered the following: CXR The patient will proceed to the ED for further evaluation. 01/26/18 13:45 01/26/18 13:48 Discharge Disposition - Diagnosis Cough - Referrals - Patient Instructions - Post Discharge Activity
[2018-01-26 13:52] VITALS: BP 141/94; PULSE 122; TEMP 98.4; BMI 29.9
--- NOTE | 2018-01-26 14:27 | PDOC ---
History of Present Illness - General Chief Complaint: Cold Symptoms Stated Complaint: COLD SYMPTOMS Time Seen by Provider: 01/26/18 13:43 - History of Present Illness Initial Comments: 01/26/18 14:26 32-year-old male with a past medical history for HIV normal CD4 count of 14,000 at this time presents for evaluation of nasal congestion without systemic symptoms 5 days. Past History - Past Medical History Allergies/Adverse Reactions: Allergies Allergy/AdvReac Type Severity Reaction Status Date / Time nut - unspecified Allergy Severe Swelling Verified 01/26/18 13:43 fruit Allergy Severe Swelling Uncoded 01/26/18 13:43 Home Medications: Ambulatory Orders Darunavir Ethanolate [Prezista] 800 mg PO DAILY 11/11/17 Emtricitabine/Tenofovir (Tdf) [Truvada 200 mg-300 mg Tablet] 200 mg PO DAILY Ritonavir 100 mg PO DAILY 11/11/17 Lactobacillus Acidophilus [Bacid -] 1 each PO DAILY #30 capsule 11/14/17 COPD: No Psychiatric Problems: No Other medical history: 11/11 -- legionella, double PNA - Surgical History Cardiac Surgery: Yes (heart surgery PDA) - Immunization History Immunization Up to Date: Yes - Suicide/Smoking/Psychosocial Hx Smoking History: Never smoked Have you smoked in the past 12 months: No Hx Alcohol Use: Yes (social) Drug/Substance Use Hx: No Substance Use Type: None Hx Substance Use Treatment: No Review of Systems - Review of Systems HEENTM: Yes: Nose Congestion *Physical Exam - Vital Signs Last Vital Signs Temp Pulse Resp BP Pulse Ox 98.4 F 122 H 18 141/94 100 01/26/18 13:45 01/26/18 13:45 01/26/18 13:45 01/26/18 13:45 01/26/18 13:45 - Physical Exam Comments: 01/26/18 14:27 HEAD: NC/AT EYES: Conjuntiva clear Ears: Canals and TM's normal NOSE: No d/c THROAT: Moist mucous membrances, oral pharanx clear, uvula midline NECK: Supple without adenopathy CARDIAC: S1 S2 LUNGS: CTA Full and Equal breath sounds ABDOMEN: Soft NT ND MS: Full ROM in all joints without edema NEUROLOGIC: No gross sensory or motor deficits, NVID SKIN: Normal color and temperature no lesions or rashes Moderate Sedation - Procedure Monitoring Vital Signs: Procedure Monitoring Vital Signs Temperature 98.4 F 01/26/18 13:45 Pulse Rate 122 H 01/26/18 13:45 Respiratory Rate 18 01/26/18 13:45 Blood Pressure 141/94 01/26/18 13:45 O2 Sat by Pulse Oximetry (%) 100 01/26/18 13:45 *DC/Admit/Observation/Transfer Diagnosis at time of Disposition: Cough, Upper respiratory infection - Discharge Dispostion Disposition: HOME Condition at time of disposition: Stable Decision to Admit order: No - Referrals - Patient Instructions Printed Discharge Instructions: DI for Viral Upper Respiratory Infection -- Adult Additional Instructions: Return to the emergency room should symptoms worsen or go unresolved. Please follow-up with your primary care physician in one to 2 days for further evaluation and treatment options. Chest x-ray was clear today - Post Discharge Activity
== END 2018-01-26 15:39 | disposition home or self-care (01) ==
LOC: JERFT 13:40
DX: J06.9 Acute upper respiratory infection, unspecified (principal); Z21 Asymptomatic human immunodeficiency virus [HIV] infection status
CPT/HCPCS: 71046-TC-FY; 99281-25

== ENCOUNTER 2019-01-12 10:34 | Emergency (ER) | payer OTHER ==
[2019-01-12 10:41] VITALS: BP 134/75; PULSE 93; TEMP 98; BMI 31.1
[2019-01-12] MEDS ORDERED: ACETAMINOPHEN 500 MG TABLET (FP) PO ONE (12:26)
--- NOTE | 2019-01-12 12:28 | PDOC ---
History of Present Illness - General Chief Complaint: Toothache Stated Complaint: TOOTHACHE Time Seen by Provider: 01/12/19 11:27 - History of Present Illness Initial Comments: 01/12/19 12:26 33-year-old male with a past medical history of HIV infection presents for evaluation of toothache x1 day. No systemic symptoms. Past History - Past Medical History Allergies/Adverse Reactions: Allergies Allergy/AdvReac Type Severity Reaction Status Date / Time nut - unspecified Allergy Severe Swelling Verified 01/12/19 10:41 fruit Allergy Severe Swelling Uncoded 01/12/19 10:41 Home Medications: Ambulatory Orders Darunavir Ethanolate [Prezista] 800 mg PO DAILY 11/11/17 Emtricitabine/Tenofovir (Tdf) [Truvada 200 mg-300 mg Tablet] 200 mg PO DAILY Ritonavir 100 mg PO DAILY 11/11/17 Lactobacillus Acidophilus [Bacid -] 1 each PO DAILY #30 capsule 11/14/17 Amoxicillin - [Amoxicillin 500mg Capsule -] 500 mg PO BID #14 capsule 01/12/19 Ibuprofen [Motrin -] 600 mg PO TID #30 tablet 01/12/19 COPD: No Psychiatric Problems: No - Surgical History Cardiac Surgery: Yes (heart surgery PDA) - Immunization History Immunization Up to Date: Yes - Psycho Social/Smoking Cessation Hx Smoking History: Never smoked Have you smoked in the past 12 months: No Hx Alcohol Use: Yes ("SOCIALLY") Drug/Substance Use Hx: No Substance Use Type: None Hx Substance Use Treatment: No Review of Systems - Review of Systems HEENTM: Yes: Dental Problems *Physical Exam - Vital Signs Last Vital Signs Temp Pulse Resp BP Pulse Ox 98.0 F 93 H 16 134/75 96 01/12/19 10:39 01/12/19 10:39 01/12/19 10:39 01/12/19 10:39 01/12/19 10:39 - Physical Exam Comments: 01/12/19 12:27 GENERAL: The patient is awake, alert, and fully oriented, in no acute distress. HEAD: Normal with no signs of trauma. EYES: sclera anicteric, conjunctiva clear. ENT: Ears normal oropharynx clear widespread dental decay NECK: Normal range of motion LUNGS: Breath sounds equal, clear to auscultation bilaterally. No wheezes, and no crackles. HEART: S1 and S2 without murmur, rub or gallop. ABDOMEN: Soft, nontender, normoactive bowel sounds. No guarding, no rebound. No masses. EXTREMITIES: Normal range of motion, no edema. No clubbing or cyanosis. No cords, erythema, or tenderness. NEUROLOGICAL: Cranial nerves II through XII grossly intact. Normal speech, normal gait. PSYCH: Normal mood, normal affect. SKIN: Warm, Dry, normal turgor, no rashes or lesions noted. Medical Decision Making - Medical Decision Making 01/12/19 12:27 Amoxicillin and Motrin discussed use of Tylenol he has a dental appointment next week Discharge - Discharge Information Problems reviewed: Yes Clinical Impression/Diagnosis: Dental decay Condition: Stable Disposition: HOME - Admission No - Additional Discharge Information Prescriptions: Amoxicillin - [Amoxicillin 500mg Capsule -] 500 mg PO BID #14 capsule Ibuprofen [Motrin -] 600 mg PO TID #30 tablet - Follow up/Referral - Patient Discharge Instructions Patient Printed Discharge Instructions: DI for Dental Pain, DI for Tooth Decay Additional Instructions: Please start the amoxicillin and Motrin and take the medication as directed. Return to the emergency room for worsening symptoms. Without fail please keep your dental appointment. Please take the Motrin prescription strength with food and you may supplemented with Tylenol as directed - Post Discharge Activity
[2019-01-12] MEDS ORDERED: ACETAMINOPHEN 500 MG TABLET (FP) ONE (12:29)
== END 2019-01-12 12:32 | disposition home or self-care (01) ==
LOC: JERFT 10:34
DX: K02.9 Dental caries, unspecified (principal); Z21 Asymptomatic human immunodeficiency virus [HIV] infection status; Z91.018 Allergy to other foods
CPT/HCPCS: 99281-25

== ENCOUNTER 2022-08-12 19:10 | Emergency (ER) | payer BC, OTHER ==
[2022-08-12 19:20] VITALS: BP 157/96; PULSE 94; RESP 20; TEMP 98; BMI 33.9
[2022-08-12] MEDS ORDERED: KETOROLAC TROMETHAMINE 10 MG TABLET PO ONE ×2 (22:36→22:43)
== END 2022-08-12 22:47 | disposition home or self-care (01) ==
LOC: JERFT 19:10
DX: R07.0 Pain in throat (principal); R50.9 Fever, unspecified; R53.83 Other fatigue; R05.9 Cough, unspecified; M79.10 Myalgia, unspecified site; R51.9 Headache, unspecified; J02.8 Acute pharyngitis due to other specified organisms; Z20.822 Contact with and (suspected) exposure to COVID-19
CPT/HCPCS: 0241U-QW; 71046-TC-FY; 87651; 99284-25

== ENCOUNTER 2023-09-16 15:42 | Inpatient (IN) | payer BC ==
[2023-09-16 17:34] LABS: BASO % 0.4 % (0-2.0); HEMOGLOBIN 14.6 GM/dL (11.7-16.9); LYMPH % 8.3 % (8-40); MCH 28.5 pg (25.7-33.7); MCHC 34.7 g/dl (32.0-35.9); MEAN CELL VOLUME 82.2 fl (80-96); MEAN PLT VOLUME 8.1 fl (7.5-11.1); MONO % 8.2 % (3.8-10.2); NEUT % 83.1 % (42.8-82.8); PLATELET COUNT 324 10^3/uL (134-434); RBC 5.11 M/mm3 (4.00-5.60); RDW 14.4 % (11.9-15.9)
[2023-09-16] MEDS ORDERED: ACETAMINOPHEN INJECTION 100 ML IVPB ONE ×2 (17:37→17:38)
[2023-09-16 17:50] LABS: POTASSIUM 3.4 mmol/L (3.5-5.1)
[2023-09-16 17:53] LABS: ALBUMIN 3.6 g/dl (3.4-5.0)
[2023-09-16] MEDS: ACETAMINOPHEN 1000 MG/100 ML BAG IVPB ONE (17:53)
[2023-09-16] MEDS: SODIUM CHLORIDE 0.9% 500 ML INFUS.BAG IV ONE ×2 (17:53→20:51)
[2023-09-16 17:57] LABS: BILIRUBIN,TOTAL 2.8 mg/dL (0.2-1)
[2023-09-16 17:58] LABS: TOT PROT 8.1 g/dl (6.4-8.2)
[2023-09-16 18:37] LABS: EPI CELLS 27 /uL (0-25.1); HYALINE CASTS 74 /uL (0-3.1); URINE APPEARANCE TURBID; URINE BILIRUBIN 3+ (NEGATIVE); URINE COLOR DK YELLOW; URINE GLUCOSE (UA) TRACE (NEGATIVE); URINE KETONE TRACE (NEGATIVE); URINE LEUK ESTERASE 1+ (NEGATIVE); URINE NITRITE POSITIVE (NEGATIVE); URINE PROTEIN 3+ (NEGATIVE); URINE UROBILINOGEN 4.0 E.U/dl mg/dL (0.2-1.0); URINE WBC 940 /uL (0-25.8)
[2023-09-16] MEDS ORDERED: CEFTRIAXONE 1 GM/50 ML BAG ONE (18:57)
[2023-09-16] MEDS: CEFTRIAXONE 1 GM in DEXTROSE 5%-WATER - 100 ML IVPB ONE (19:00)
[2023-09-16 19:18] LABS: ERYTHROCYTE SEDIMENTATION RATE 74 mm/hr (0-10)
[2023-09-16 19:42] LABS: URINE BACTERIA 9.4 /uL (0-1359); URINE RBC 55.5 /uL (0-23.9)
[2023-09-16] MEDS ORDERED: KETOROLAC TROMETHAMINE 15 MG/ML VIAL ONE (20:56)
[2023-09-16] MEDS: KETOROLAC TROMETHAMINE 15 MG/ML VIAL IVPUSH ONE (21:06)
[2023-09-17] MEDS: LACTATED RINGERS SOLUTION 1,000 ML/1,000 ML INFUS.BAG IV SCH (00:11)
[2023-09-17] MEDS ORDERED: ACETAMINOPHEN INJECTION 100 ML IVPB ONE (02:00)
[2023-09-17] MEDS: COLCHICINE 0.6 MG CAP PO ONE (03:22)
[2023-09-17 04:36] VITALS: BMI 38.5
[2023-09-17] MEDS: HEPARIN NA (PORCINE) 5,000 UNITS/ML 1ML VIAL SQ SCH (06:58)
[2023-09-17] MEDS: ACETAMINOPHEN 1000 MG/100 ML BAG IVPB PRN (06:59)
[2023-09-17] MEDS: COLCHICINE 0.6 MG TAB PO ONE (06:59)
[2023-09-17 08:17] LABS: HEMATOCRIT 36.1 % (35.4-49); HEMOGLOBIN 12.4 GM/dL (11.7-16.9); MCH 28.9 pg (25.7-33.7); MCHC 34.4 g/dl (32.0-35.9); MEAN CELL VOLUME 83.9 fl (80-96); MEAN PLT VOLUME 8.2 fl (7.5-11.1); PLATELET COUNT 301 10^3/uL (134-434); RDW 14.4 % (11.9-15.9); WHITE BLOOD COUNT 17.1 K/mm3 (4.0-10.0)
[2023-09-17 08:24] LABS: POTASSIUM 3.5 mmol/L (3.5-5.1)
[2023-09-17 08:32] LABS: CALCIUM 9.4 mg/dL (8.5-10.1)
[2023-09-17 08:33] LABS: ALBUMIN 3.1 g/dl (3.4-5.0); BLOOD UREA NITROGEN 17.5 mg/dL (7-18); MAGNESIUM 2.6 mg/dL (1.8-2.4)
[2023-09-17 08:35] LABS: BILIRUBIN,DIRECT 1.2 mg/dL (0.0-0.2); CREATININE 1.4 mg/dL (0.55-1.3)
[2023-09-17 08:37] LABS: BILIRUBIN,TOTAL 1.8 mg/dL (0.2-1)
[2023-09-17] MEDS: CEFTRIAXONE 1 GM in DEXTROSE 5%-WATER - 50 ML IVPB SCH (09:56)
[2023-09-17] MEDS: EMTRICITAB/RILPIVIRI/TENOF ALA (ODEFSEY) TABLET PO SCH (09:56)
[2023-09-17] MEDS ORDERED: HYDROCHLOROTHIAZIDE 25 MG TABLET (FP) PO SCH (10:00)
[2023-09-17] MEDS: METHOCARBAMOL 500 MG TABLET PO SCH (14:26)
[2023-09-18 01:55] LABS: PH,URINE 5.5 (5.0-8.0); URINE APPEARANCE CLEAR; URINE BILIRUBIN 1+ (NEGATIVE); URINE COLOR DK YELLOW; URINE GLUCOSE (UA) NEGATIVE (NEGATIVE); URINE KETONE 1+ (NEGATIVE); URINE LEUK ESTERASE NEGATIVE (NEGATIVE); URINE NITRITE NEGATIVE (NEGATIVE); URINE PROTEIN TRACE (NEGATIVE)
[2023-09-18] MEDS: oxyCODONE HCL 5 MG TABLET PO PRN (02:22)
[2023-09-18 08:54] LABS: BASO % 0.1 % (0-2.0); EOS % 0.1 % (0-4.5); HEMATOCRIT 33.6 % (35.4-49); HEMOGLOBIN 11.6 GM/dL (11.7-16.9); LYMPH % 18.2 % (8-40); MCH 28.4 pg (25.7-33.7); MCHC 34.3 g/dl (32.0-35.9); MEAN CELL VOLUME 82.8 fl (80-96); MEAN PLT VOLUME 8.2 fl (7.5-11.1); MONO % 10.2 % (3.8-10.2); NEUT % 71.4 % (42.8-82.8); PLATELET COUNT 344 10^3/uL (134-434); RBC 4.06 M/mm3 (4.00-5.60); RDW 14.9 % (11.9-15.9); WHITE BLOOD COUNT 14.7 K/mm3 (4.0-10.0)
[2023-09-18 09:25] LABS: POTASSIUM 3.3 mmol/L (3.5-5.1)
[2023-09-18 09:35] LABS: ALBUMIN 2.6 g/dl (3.4-5.0); CALCIUM 8.8 mg/dL (8.5-10.1)
[2023-09-18 09:36] LABS: BLOOD UREA NITROGEN 10.6 mg/dL (7-18)
[2023-09-18 09:37] LABS: CREATININE 0.8 mg/dL (0.55-1.3)
[2023-09-18 09:39] LABS: BILIRUBIN,TOTAL 1.1 mg/dL (0.2-1); TOT PROT 6.5 g/dl (6.4-8.2)
[2023-09-18 09:41] LABS: URIC ACID 4.9 mg/dL (2.6-7.2)
[2023-09-18] MEDS: predniSONE 20 MG TABLET (UD) PO SCH (09:46)
[2023-09-18] MEDS: COLCHICINE 0.6 MG TAB PO SCH (09:46)
[2023-09-18] MEDS: POTASSIUM CHLORIDE ORAL LIQUID 20 MEQ/15 ML PO ONE (18:23)
[2023-09-19 09:25] LABS: BASO % 0.2 % (0-2.0); EOS % 0.1 % (0-4.5); HEMOGLOBIN 12.2 GM/dL (11.7-16.9); LYMPH % 19.7 % (8-40); MCH 27.9 pg (25.7-33.7); MCHC 33.8 g/dl (32.0-35.9); MEAN CELL VOLUME 82.5 fl (80-96); MEAN PLT VOLUME 8.1 fl (7.5-11.1); MONO % 7.2 % (3.8-10.2); NEUT % 72.8 % (42.8-82.8); PLATELET COUNT 420 10^3/uL (134-434); RBC 4.37 M/mm3 (4.00-5.60); RDW 14.9 % (11.9-15.9); WHITE BLOOD COUNT 16.8 K/mm3 (4.0-10.0)
[2023-09-19 09:57] LABS: POTASSIUM 3.7 mmol/L (3.5-5.1)
[2023-09-19 10:14] LABS: CALCIUM 9.5 mg/dL (8.5-10.1)
[2023-09-19 10:15] LABS: BLOOD UREA NITROGEN 13.5 mg/dL (7-18)
[2023-09-19 10:18] LABS: CREATININE 0.9 mg/dL (0.55-1.3)
[2023-09-19 12:40] LABS: URINE APPEARANCE CLEAR; URINE BILIRUBIN 1+ (NEGATIVE); URINE COLOR DK YELLOW; URINE GLUCOSE (UA) NEGATIVE (NEGATIVE); URINE KETONE TRACE (NEGATIVE); URINE LEUK ESTERASE NEGATIVE (NEGATIVE); URINE NITRITE NEGATIVE (NEGATIVE); URINE PROTEIN TRACE (NEGATIVE)
[2023-09-20 08:11] LABS: BASO % 0.3 % (0-2.0); EOS % 0.2 % (0-4.5); HEMATOCRIT 33.9 % (35.4-49); HEMOGLOBIN 11.4 GM/dL (11.7-16.9); LYMPH % 23.1 % (8-40); MCH 28.1 pg (25.7-33.7); MCHC 33.6 g/dl (32.0-35.9); MEAN CELL VOLUME 83.6 fl (80-96); MEAN PLT VOLUME 7.8 fl (7.5-11.1); MONO % 7.8 % (3.8-10.2); NEUT % 68.6 % (42.8-82.8); PLATELET COUNT 425 10^3/uL (134-434); RBC 4.06 M/mm3 (4.00-5.60); RDW 14.8 % (11.9-15.9); WHITE BLOOD COUNT 16.9 K/mm3 (4.0-10.0)
[2023-09-20 08:30] LABS: POTASSIUM 3.8 mmol/L (3.5-5.1)
[2023-09-20 08:35] LABS: CALCIUM 9.1 mg/dL (8.5-10.1)
[2023-09-20 08:36] LABS: BLOOD UREA NITROGEN 18.7 mg/dL (7-18)
[2023-09-20 08:39] LABS: CREATININE 0.9 mg/dL (0.55-1.3)
[2023-09-20] MEDS: LIDOCAINE 5% TOPICAL PATCH TP SCH (10:40)
[2023-09-20] MEDS: HYDROCHLOROTHIAZIDE 25 MG TABLET (FP) PO SCH (20:09)
[2023-09-20] MEDS: LIDOCAINE PATCH REMOVAL MC SCH (21:33)
[2023-09-21] MEDS: oxyCODONE HCL 5 MG TABLET PO ONE (01:49)
[2023-09-21 09:57] LABS: BASO % 0.2 % (0-2.0); EOS % 0.1 % (0-4.5); HEMATOCRIT 34.8 % (35.4-49); LYMPH % 24.8 % (8-40); MCH 28.6 pg (25.7-33.7); MCHC 34.4 g/dl (32.0-35.9); MEAN CELL VOLUME 83.1 fl (80-96); MEAN PLT VOLUME 7.8 fl (7.5-11.1); MONO % 7.9 % (3.8-10.2); PLATELET COUNT 499 10^3/uL (134-434); RBC 4.19 M/mm3 (4.00-5.60); WHITE BLOOD COUNT 14.6 K/mm3 (4.0-10.0)
[2023-09-21 10:15] LABS: POTASSIUM 3.9 mmol/L (3.5-5.1)
[2023-09-21] MEDS: KETOROLAC TROMETHAMINE 15 MG/ML VIAL IM ONE (10:16)
[2023-09-21 10:32] LABS: BLOOD UREA NITROGEN 14.1 mg/dL (7-18)
[2023-09-21 10:35] LABS: CREATININE 0.8 mg/dL (0.55-1.3)
[2023-09-21] MEDS: HEPARIN NA (PORCINE) 5,000 UNITS/ML 1ML VIAL SQ SCH (22:21)
[2023-09-22] MEDS: oxyCODONE HCL 5 MG TABLET PO PRN (04:43)
[2023-09-22 09:12] LABS: BASO % 0.2 % (0-2.0); EOS % 0.2 % (0-4.5); HEMATOCRIT 35.8 % (35.4-49); HEMOGLOBIN 12.3 GM/dL (11.7-16.9); LYMPH % 26.8 % (8-40); MCH 28.4 pg (25.7-33.7); MCHC 34.5 g/dl (32.0-35.9); MEAN CELL VOLUME 82.4 fl (80-96); MEAN PLT VOLUME 7.6 fl (7.5-11.1); MONO % 7.3 % (3.8-10.2); NEUT % 65.5 % (42.8-82.8); PLATELET COUNT 579 10^3/uL (134-434); RBC 4.34 M/mm3 (4.00-5.60); WHITE BLOOD COUNT 15.3 K/mm3 (4.0-10.0)
[2023-09-22] MEDS: FAMOTIDINE 20 MG TABLET PO SCH (09:17)
[2023-09-22] MEDS: EMTRICITAB/RILPIVIRI/TENOF ALA (ODEFSEY) TABLET PO SCH (09:18)
[2023-09-22 09:31] LABS: POTASSIUM 4.1 mmol/L (3.5-5.1)
[2023-09-22 09:34] LABS: ALBUMIN 2.9 g/dl (3.4-5.0); BLOOD UREA NITROGEN 16.3 mg/dL (7-18); CALCIUM 9.7 mg/dL (8.5-10.1)
[2023-09-22 09:37] LABS: CREATININE 0.9 mg/dL (0.55-1.3)
[2023-09-22 09:39] LABS: BILIRUBIN,TOTAL 0.6 mg/dL (0.2-1); TOT PROT 7.4 g/dl (6.4-8.2)
[2023-09-22] MEDS ORDERED: KETOROLAC TROMETHAMINE 30 MG/1 ML VIAL IVPUSH ONE (11:00)
[2023-09-22] MEDS: KETOROLAC TROMETHAMINE 15 MG/ML VIAL IVPUSH ONE ×2 (11:27→17:48)
[2023-09-22] MEDS: KETOROLAC TROMETHAMINE 30 MG/1 ML VIAL IVPUSH ONE (11:32)
[2023-09-23 05:08] LABS: ANTI-DNAse B <78 U/mL (0-120)
[2023-09-23 07:05] VITALS: RESP 18; TEMP 98.4
[2023-09-23 08:15] LABS: POTASSIUM 4.4 mmol/L (3.5-5.1)
[2023-09-23 08:19] LABS: CALCIUM 9.3 mg/dL (8.5-10.1); HEMATOCRIT 36.5 % (35.4-49); HEMOGLOBIN 12.1 GM/dL (11.7-16.9); MCH 27.9 pg (25.7-33.7); MCHC 33.2 g/dl (32.0-35.9); MEAN CELL VOLUME 84.1 fl (80-96); MEAN PLT VOLUME 7.8 fl (7.5-11.1); PLATELET COUNT 587 10^3/uL (134-434); RBC 4.34 M/mm3 (4.00-5.60); RDW 14.5 % (11.9-15.9); WHITE BLOOD COUNT 15.8 K/mm3 (4.0-10.0)
[2023-09-23 08:23] LABS: CREATININE 0.9 mg/dL (0.55-1.3)
[2023-09-23 12:59] VITALS: BP 132/83; PULSE 91
[2023-09-23 18:07] LABS: C-ANCA <1:20 titer (Neg:<1:20)
== END 2023-09-23 19:15 | disposition home or self-care (01) | DRG 683 ==
LOC: JERFT 15:42 → JER 15:42 → JERBED 20:33 → J7W 09-17 04:15 → OBSVTOIN 09-22 17:19
PROVIDERS: ADMIT Internal Medicine; ATTEND Internal Medicine
DX: N17.9 Acute kidney failure, unspecified (principal); M62.82 Rhabdomyolysis; N39.0 Urinary tract infection, site not specified; I10 Essential (primary) hypertension; M25.512 Pain in left shoulder; M25.561 Pain in right knee; Z21 Asymptomatic human immunodeficiency virus [HIV] infection status; E87.6 Hypokalemia; N28.1 Cyst of kidney, acquired; M10.9 Gout, unspecified
CPT/HCPCS: 36415; 73030-TC-LT-FY; 73200-TC-RT; 73562-TC-RT-FY; 74176-TC; 76775-TC; 80048; 80053; 81003; 82248; 82550; 82553; 82728; 83520; 83735; 84484; 84550; 85025; 85027; 85651; 86038; 86140; 86160; 86215; 86225; 86256; 86359; 86360; 86618; 87040; 87086; 87491; 87591; 93005; 93010; 93970-TC; 97116-GP; 97161-GP; 99285-25; G0378; J0131; J1644